=== PATIENT | female | born 2005 | race Caucasian/White ===

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

== ENCOUNTER 2023-02-09 11:22 | Emergency (ER) | payer OTHER, SELFPAY ==
[2023-02-09] VITALS (12 sets, daily range): BP systolic 124–134; BP diastolic 74–93; PULSE 70–96; RESP 20; TEMP 36.9; O2SAT 97–100; BMI 23.0
--- NOTE | 2023-02-09 12:10 | ED.ABDPAIN ---
HPI - Abdominal Pain General Time Seen by Provider: 12:10 Date Seen: 02/09/23 Chief Complaint: Abdominal Pain Stated Complaint: Positive test and has IUD Time Seen by Provider: 02/09/23 12:10 Source: patient and RN notes reviewed Mode of arrival: ambulatory Limitations: no limitations History of Present Illness HPI narrative: Patient is a very pleasant 17-year-old female who comes to the emergency room with a positive test, right-sided abdominal pain for 1 and half to 2 weeks and vaginal bleeding over the past couple of days. Patient notes that she had an IUD placed this past summer at her home in [place]. She notes that she is sexually active with 1 partner. She developed right lower quadrant pain approximately 1-1/2-2 weeks ago and has noticed that her breasts seemed to be more tender and larger. She noted that she had the onset of bleeding that has been heavy but on and off over the past couple days. She has never been before and she does not normally get periods with her IUD in place. Today she has a mild headache and is feeling a bit lightheaded. She denies that her heart is racing nor has she had a fever. She denies dysuria or diarrhea. 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 She is usually a healthy person. 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 She has not taken anything for pain and her last food intake was last evening. Related Data Home Medications Medication Instructions Recorded Confirmed bupropion HCl 100 mg tablet 100 mg PO BID 06/07/22 02/09/23 cetirizine 10 mg tablet (Zyrtec) 10 mg PO DAILY PRN 06/07/22 02/09/23 escitalopram oxalate 20 mg tablet 30 mg PO DAILY 06/07/22 02/09/23 levonorgestrel 21 mcg/24 hours (8 1 device intrauterine 06/07/22 yrs) 52 mg intrauterine device (Mirena) multivitamin 1 tab PO DAILY 06/07/22 06/07/22 lamotrigine 100 mg tablet 100 mg PO DAILY 02/09/23 02/09/23 (Lamictal) Previous Rx's Medication Instructions Recorded ketorolac 10 mg tablet 10 mg PO TID 5 days #15 tabs 06/07/22 Allergies Allergy/AdvReac Type Severity Reaction Status Date / Time No Known Drug Allergies Allergy Verified 06/07/22 15:47 Review of Systems Status of ROS Reports: 10 or more systems reviewed and unremarkable except as noted in History and below Const Denies: fever or chills ENMT Denies: throat pain or neck pain Cardio Reports: lightheadedness; Denies: chest pain, swelling of feet/ankles or shortness of breath with exertion Resp Denies: shortness of breath GI Reports: abdominal pain; Denies: nausea, vomiting or diarrhea Denies: painful urination or urinary frequency Musculo Denies: neck pain Neuro Reports: headache [facility] Medical History Asthma Surgical History Hx of breast reduction, elective S/P appendectomy Social History Smoking Status: Never smoker How often do you have a drink containing alcohol: monthly or less AUDIT-C Alcohol total score: 1 Non-prescribed substance use: denies use Exam Narrative: Exam Narrative: Alert and oriented. Good color and in no acute distress Oral cavity with moist mucous membranes. Dentition all intact. Neck is supple without lymphadenopathy. Heart with regular rate and rhythm. Lungs are clear to auscultation. Abdomen is soft. She has some slight tenderness in the suprapubic and right lower quadrant. Moving all extremities. Normal external female genitalia. Moderate amount mucoid discharge. No foul order. It is blood tinged. No cervical motion tenderness. Positive for tenderness in the right adnexa. No masses are palpated. Wet prep and GC chlamydia accomplished. Const: Vital Signs, click to edit/add: Vital Signs - 24 hr 02/09/23 11:47 02/09/23 13:36 02/09/23 13:37 Temperature 98.4 F Pulse Rate 79 88 Pulse Rate [Pulse Oximeter] 79 Respiratory Rate 20 Blood Pressure 127/79 Blood Pressure [Ri ght Upper Arm] 134/89 Pulse Oximetry 99 99 99 Oxygen Delivery Me thod Room Air 02/09/23 13:45 02/09/23 14:00 02/09/23 14:15 Temperature Pulse Rate 91 96 84 Pulse Rate [Pulse Oximeter] Respiratory Rate Blood Pressure Blood Pressure [Ri ght Upper Arm] Pulse Oximetry 99 97 100 Oxygen Delivery Me thod 02/09/23 14:30 02/09/23 14:32 02/09/23 14:45 Temperature Pulse Rate 78 80 72 Pulse Rate [Pulse Oximeter] Respiratory Rate Blood Pressure 134/93 H Blood Pressure [Ri ght Upper Arm] Pulse Oximetry 98 99 98 Oxygen Delivery Me thod 02/09/23 15:00 02/09/23 15:02 02/09/23 15:15 Temperature Pulse Rate 80 81 70 Pulse Rate [Pulse Oximeter] Respiratory Rate Blood Pressure 124/74 Blood Pressure [Ri ght Upper Arm] Pulse Oximetry 99 99 98 Oxygen Delivery Me thod Documenting provider has reviewed patient's vital signs: yes Course Course Hospital Course: At this time patient tells me she had a positive test at home. She did this test because her breasts have been tender in seemed to be bigger. Patient denies possibility of sexually transmitted diseases she is in a committed relationship. At this time of course I am worried about an ectopic . Will order quantitative hCG, vaginal ultrasound, CBC, comprehensive panel. Will also consult with OB on-call at this time. Will give patient 500 mL [address] saline and place an IV. Will also order a type and screen. Reevaluation(s) Reevaluation #1: Patient informed that hCG here to the ER is negative. Patient agrees to pelvic exam. Reevaluation #2: Patient notes some improvement after Toradol 15 mg IV. Patient also received 500 mL of normal saline. Consultations Consultation #1: Brief consultation with Dr. Herrera in regards to potential ectopic in this patient with a positive home test and IUD in place. Consultation #2: Second consult with Dr. Herrera. Negative HCG as well as ultrasound that did not show any evidence of , ovarian torsion or adnexal mass. Vital Signs Vital signs: Initial Vital Signs Temperature 98.4 F 02/09/23 11:47 Temperature Source Temporal Artery Scan 02/09/23 11:47 Pulse Rate 79 02/09/23 11:47 Respiratory Rate 20 02/09/23 11:47 Blood Pressure 134/89 02/09/23 11:47 Blood Pressure Mean 104 02/09/23 11:47 Blood Pressure Position Sitting 02/09/23 11:47 Pulse Oximetry 99 02/09/23 11:47 Oxygen Delivery Method 02/09/23 11:47 Vital Signs Temperature 98.4 F 02/09/23 11:47 Pulse Rate 79 02/09/23 11:47 Respiratory Rate 20 02/09/23 11:47 Blood Pressure 134/89 02/09/23 11:47 Pulse Oximetry 99 02/09/23 11:47 Oxygen Delivery Method 02/09/23 11:47 Temperature 98.4 F 02/09/23 11:47 Pulse Rate 70 02/09/23 15:15 Respiratory Rate 20 02/09/23 11:47 Blood Pressure 124/74 02/09/23 15:02 Pulse Oximetry 98 02/09/23 15:15 Oxygen Delivery Method 02/09/23 11:47 MDM - Abdominal Pain MDM Narrative Medical decision making narrative: 1. Vaginal bleeding-serum quantitative hCG is negative an ultrasound shows no evidence of a . Reassurance that IUD appears to be in correct location. I do not have explanation for patient's pain at this time. GC and chlamydia pending and wet prep is negative. Recommend ibuprofen or Tylenol as needed for discomfort. 2. Right lower quadrant pain-patient had with ultrasound that showed good flow to ovaries. Pain has been ongoing for 1-1/2-2 weeks at this point. CRP and white count within normal limits. Patient had appendectomy as a child. At this time I did talk about further evaluation but feel that the risks of a CT with radiation outweigh any benefits. However, should abdominal pain increase, patient have increasing fever would have her return to the emergency room for further evaluation. 3. [id number] with OBGYN for recheck. Return to the emergency room or seek medical attention for worsening symptoms. Lab Data Attestation: I reviewed the patient's lab results. Labs: Lab Results 02/09/23 02/09/23 02/09/23 Range/Units 12:41 12:41 12:41 WBC 5.35 (4.50-11.00) K/uL RBC 5.06 (4.00-5.20) m/uL Hgb 13.4 (12.0-16.0) gm/dL Hct 41.5 (33.0-51.0) % MCV 82 (80-100) fL MCH 27 (26-34) pg MCHC 32 (32-36) gm/dL RDW Coeff of Primitivo 14.0 (11.5-15.5) % Plt Count 288 (140-440) K/uL Neut % (Auto) 53.3 (42.0-72.0) % Lymph % (Auto) 36.3 (20-44) % Keith % (Auto) 6.9 (0.0-11.0) % Eos % (Auto) 2.6 (0.0-7.0) % Baso % (Auto) 0.7 (0.0-3.0) % Neut # (Auto) 2.85 (1.7-7.0) K/uL Lymph # (Auto) 1.94 (0.90-2.90) K/uL Keith # (Auto) 0.40 (0.00-0.90) K/UL Eos # (Auto) 0.14 (0.00-0.50) K/uL Baso # (Auto) 0.04 (0.00-0.30) K/uL Sodium 136 (135-149) mmol/L Potassium 4.8 (3.6-5.1) mmol/L Chloride 104 (96-114) mmol/L Carbon Dioxide 24 (20-32) mmol/L BUN 11 (5-24) mg/dL Creatinine 0.8 (0.6-1.2) mg/dL Estimated Creat Clear 93.56 Estimated GFR 109 ml/min Glucose 89 (60-115) mg/dL Calcium 9.7 (8.7-10.8) mg/dL Total Bilirubin 0.7 (0.1-1.5) mg/dL AST 36 H (12-35) U/L ALT 21 (4-35) U/L Alkaline Phosphatase 74 (40-150) U/L Total Protein 8.4 H (6.0-8.3) g/dL Albumin 4.9 (3.3-5.0) g/dL HCG, Quant < 2.39 mIU/mL Vaginal Trichomonas (None Seen) Vaginal Yeast (None Seen) Vaginal Clue Cells (None Seen) C.trachomatis Ampl DNA (No Detected) N.gonorrhoeae Ampl DNA (No Detected) Blood Type A Positive Antibody Screen NEGATIVE 02/09/23 02/09/23 Range/Units 14:00 14:00 WBC (4.50-11.00) K/uL RBC (4.00-5.20) m/uL Hgb (12.0-16.0) gm/dL Hct (33.0-51.0) % MCV (80-100) fL MCH (26-34) pg MCHC (32-36) gm/dL RDW Coeff of Primitivo (11.5-15.5) % Plt Count (140-440) K/uL Neut % (Auto) (42.0-72.0) % Lymph % (Auto) (20-44) % Keith % (Auto) (0.0-11.0) % Eos % (Auto) (0.0-7.0) % Baso % (Auto) (0.0-3.0) % Neut # (Auto) (1.7-7.0) K/uL Lymph # (Auto) (0.90-2.90) K/uL Keith # (Auto) (0.00-0.90) K/UL Eos # (Auto) (0.00-0.50) K/uL Baso # (Auto) (0.00-0.30) K/uL Sodium (135-149) mmol/L Potassium (3.6-5.1) mmol/L Chloride (96-114) mmol/L Carbon Dioxide (20-32) mmol/L BUN (5-24) mg/dL Creatinine (0.6-1.2) mg/dL Estimated Creat Clear Estimated GFR ml/min Glucose (60-115) mg/dL Calcium (8.7-10.8) mg/dL Total Bilirubin (0.1-1.5) mg/dL AST (12-35) U/L ALT (4-35) U/L Alkaline Phosphatase (40-150) U/L Total Protein (6.0-8.3) g/dL Albumin (3.3-5.0) g/dL HCG, Quant mIU/mL Vaginal Trichomonas No Trichomonas Seen (None Seen) Vaginal Yeast No Yeast Seen (None Seen) Vaginal Clue Cells No Clue Cells Seen (None Seen) C.trachomatis Ampl DNA NOT DETECTED (No Detected) N.gonorrhoeae Ampl DNA NOT DETECTED (No Detected) Blood Type Antibody Screen Imaging Data Vaginal ultrasound: Attestation: I have reviewed the pertinent imaging results. Radiologist's impression: IUD in the endometrial canal. Endometrial thickness is 4 mm. No intrauterine gestational sac. Right ovary measures 3.8 x 2.1 x 2.7 cm. Normal appearance of the right ovary. Blood flow present in the right ovary. Left ovary measures 3 x 1.9 cm. Third dimension was not obtained. Normal appearance of the left ovary. Blood flow present in the left ovary. No mass in the visualized adnexae. Trace free fluid in the pelvis. IMPRESSION: 1. of unknown location. No intrauterine gestational sac. Correlate with quantitative beta HCG and consider ultrasound follow-up. 2. IUD in the uterus. 3. Normal appearing ovaries. 4. Trace free fluid in the pelvis. Discharge Plan Discharge Clinical Impression: Vaginal bleeding, Abdominal pain Patient Disposition: Home, Self-Care Condition: Improved Additional Instructions: Follow-up with OBGYN for recheck. The phone number for appointment is [phone]. Please ask to be transferred to the OB appointment line. Profound or Tylenol as needed for discomfort. Labs today were reassuring. However, should you develop worsening pain, fever, vaginal bleeding increased please return to the emergency room for further evaluation. Prescriptions: No Action bupropion HCl 100 mg tablet 100 mg PO BID escitalopram oxalate 20 mg tablet 30 mg PO DAILY Mirena 20 mcg/24 hours (7 yrs) 52 mg intrauterine device 1 device intrauterine cetirizine [Zyrtec] 10 mg tablet 10 mg PO DAILY PRN multivitamin Tablet 1 tab PO DAILY ketorolac 10 mg tablet 10 mg PO TID 5 Days Qty: 15 0RF lamotrigine [Lamictal] 100 mg tablet 100 mg PO DAILY Follow Up/Referrals: Provider,Not a Local [Primary Care Provider] - Stand Alone Forms: [employer] Info Instructions
--- NOTE | 2023-02-09 12:17 | CRLHL7_ITS ---
For Patients: As a result of the Century Cures Act, medical imaging exams and procedure reports are released immediately into your electronic medical record. You may view this report before your referring provider. If you have questions, please contact your health care provider. HISTORY: Right lower quadrant pain. Positive home test. IUD. TECHNIQUE: Ultrasound of the pelvis using transvaginal technique. COMPARISON: None. FINDINGS: IUD in the endometrial canal. Endometrial thickness is 4 mm. No intrauterine gestational sac. Right ovary measures 3.8 x 2.1 x 2.7 cm. Normal appearance of the right ovary. Blood flow present in the right ovary. Left ovary measures 3 x 1.9 cm. Third dimension was not obtained. Normal appearance of the left ovary. Blood flow present in the left ovary. No mass in the visualized adnexae. Trace free fluid in the pelvis. IMPRESSION: 1. of unknown location. No intrauterine gestational sac. Correlate with quantitative beta HCG and consider ultrasound follow-up. 2. IUD in the uterus. 3. Normal appearing ovaries. 4. Trace free fluid in the pelvis. Dictated by Solo Donis MD @ 02/09/2023 2:22:32 PM (Electronically Signed)
[2023-02-09 12:47] LABS: Basophils Absolute Auto 0.04 K/uL (0.00-0.30); Basophils Percent Auto 0.7 % (0.0-3.0); Eosinophils Absolute Auto 0.14 K/uL (0.00-0.50); Eosinophils Percent Auto 2.6 % (0.0-7.0); Hematocrit 41.5 % (33.0-51.0); Hemoglobin* 13.4 gm/dL (12.0-16.0); Immature Granulocytes Abs Auto 0.01 K/uL (0.00-0.30); Immature Granulocytes Pct Auto 0.2 %; Lymphocytes Absolute Auto 1.94 K/uL (0.90-2.90); Lymphocytes Percent Auto 36.3 % (20-44); Mean Corpuscular HGB Conc 32 gm/dL (32-36); Mean Corpuscular Hemoglobin 27 pg (26-34); Mean Corpuscular Volume 82 fL (80-100); Monocytes Percent Auto 6.9 % (0.0-11.0); Neutrophils Absolute Auto 2.85 K/uL (1.7-7.0); Neutrophils Percent Auto 53.3 % (42.0-72.0); Platelet Count* 288 K/uL (140-440); Red Blood Count 5.06 m/uL (4.00-5.20); White Blood Count* 5.35 K/uL (4.50-11.00)
[2023-02-09 12:51] LABS: Slide Review Reflex No
[2023-02-09] MEDS: 0.9 % SODIUM CHLORIDE 500 ML 500 ML IV (12:55)
[2023-02-09 13:07] LABS: Albumin* 4.9 g/dL (3.3-5.0); Chloride* 104 mmol/L (96-114); Potassium* 4.8 mmol/L (3.6-5.1); Sodium* 136 mmol/L (135-149)
[2023-02-09 13:10] LABS: Alanine Aminotransferase* 21 U/L (4-35); Alkaline Phosphatase* 74 U/L (40-150); Aspartate Amino Transferase* 36 U/L (12-35); Bilirubin Total* 0.7 mg/dL (0.1-1.5); Blood Urea Nitrogen* 11 mg/dL (5-24); Carbon Dioxide* 24 mmol/L (20-32); Creatinine* 0.8 mg/dL (0.6-1.2); Est. Creatinine Clearance* 93.56; Estimated Glomerular Filt Rate 109 ml/min; Glucose* 89 mg/dL (60-115); Total Protein* 8.4 g/dL (6.0-8.3)
[2023-02-09 13:11] LABS: Calcium* 9.7 mg/dL (8.7-10.8)
[2023-02-09 13:33] LABS: HCG Quantitative* < 2.39 mIU/mL
--- NOTE | 2023-02-09 14:06 | ED.NURSE ---
MD in room to perform pelvic exam and obtain swabs for wet prep and GC/Chl. [employer] at bedside.
[2023-02-09] MEDS: KETOROLAC 15 MG/ML inj IVP (14:12)
[2023-02-09 14:30] LABS: Yeast No Yeast Seen (None Seen)
[2023-02-09 14:31] LABS: Clue Cells No Clue Cells Seen (None Seen); Trichomonas No Trichomonas Seen (None Seen)
[2023-02-09 15:42] LABS: Chlamydia DNA Amplified* NOT DETECTED (No Detected); GC DNA Amplified* NOT DETECTED (No Detected)
== END 2023-02-09 15:25 | disposition home or self-care (01) ==
PROVIDERS: Emergency Provider Family Medicine
DX: N93.9 Abnormal uterine and vaginal bleeding, unspecified (principal); R10.9 Unspecified abdominal pain
CPT/HCPCS: 36415; 76817; 80053; 84702; 85025; 86850; 86900; 86901; 87210; 87491; 87591; 93976; 96361; 96374; 99284; 99285; J1885; J7120

== ENCOUNTER 2024-08-28 16:18 | Emergency (ER) | payer OTHER, SELFPAY ==
[2024-08-28 16:21] VITALS: BP 146/88; PULSE 56; RESP 14; TEMP 36.9; O2SAT 98; BMI 24.8
--- NOTE | 2024-08-28 16:59 | ED_ITS ---
HPI - General Adult General Chief complaint: Cough Stated complaint: asthma, COVID + Time Seen by Provider: 08/28/24 16:29 History of Present Illness HPI narrative: This 19-year-old female comes in reporting a home test positive for COVID yesterday. She does have an occasional nonproductive cough. She does have a history of asthma and is taking preventative medicine along with albuterol as needed. She is reporting some tingling sensation in her fingers. She has anxiety about these symptoms and is a little bit tearful and that regard. She arrives here with normal vital signs. She does see a asthma specialist for her asthma and allergy symptoms. Related Data Home Medications ?Medication ?Instructions ?Recorded ?Confirmed bupropion HCl 100 mg tablet 100 mg PO BID 06/07/22 08/25/23 cetirizine 10 mg tablet (Zyrtec) 10 mg PO DAILY PRN 06/07/22 08/25/23 escitalopram oxalate 20 mg tablet 30 mg PO DAILY 06/07/22 08/25/23 levonorgestrel 21 mcg/24 hr (up to 1 device intrauterine 06/07/22 08/25/23 8 years) 52 mg intrauterine device (Mirena) mirtazapine 15 mg tablet 15 mg PO DAILY 08/28/24 08/28/24 Previous Rx's ?Medication ?Instructions ?Recorded methylprednisolone 4 mg tablets in See Rx Instructions PO .COMPLEX 08/28/24 a dose pack (Medrol (Germán)) #21 ea Allergies Allergy/AdvReac Type Severity Reaction Status Date / Time No Known Drug Allergies Allergy Verified 08/25/23 14:05 Review of Systems Status of ROS: Reports: 10 or more systems reviewed and unremarkable except as noted in History and below Narrative: Constitutional: No fevers, no weight gain or loss. Eyes: No discharge. No vision changes. HENT: No congestion, no sore throat, no ear pain. Cardiovascular: No chest pain, no palpitations. Respiratory: No shortness of breath, no wheezes. Occasional nonproductive cough. Gastrointestinal: No abdominal pain, no vomiting, no diarrhea. Genitourinary: No dysuria, no hematuria. Musculoskeletal: Normal range of motion. Skin: No rashes, no pruritis. Neurological: No dizziness, weakness, sensory change, speech change. Endo/Heme/Allergies: No bruising or bleeding. No polydipsia. Pysch: no suicidality, no insomnia. She has anxiety about her symptoms. All other systems reviewed and are negative. [facility] Medical History Asthma Surgical History Hx of breast reduction, elective S/P appendectomy Social History Smoking Status: Never smoker How often do you have a drink containing alcohol: monthly or less AUDIT-C Alcohol total score: 1 Non-prescribed substance use: denies use Exam Narrative: Exam Narrative: Constitutional: Well-developed, well-nourished, no acute distress. HEENT: Normocephalic, atraumatic. Neck: Normal range of motion. Nontender. Supple. Heart: Regular. No murmurs. Normal rate. Intact distal pulses. Lungs: Clear to auscultation. No chest discomfort. No wheezes, rhonchi, or rales. Abdomen: Normal bowel sounds. Nontender. No rebound tenderness. Genitalia: Deferred. Back: No midline tenderness. Normal range of motion. Extremities: Normal range of motion. No injury. Skin: Intact. No rash. Warm. No erythema or pallor. Neurologic: No altered sensation. No weakness. Alert and oriented. Psychiatric: No suicidality. No insomnia. Nursing notes and vitals signs are reviewed. Const: Vital Signs, click to edit/add: Vital Signs - 24 hr 08/28/24 16:21 Temperature 98.4 F Pulse Rate [Right Pulse Oximeter] 56 L Respiratory Rate 14 Blood Pressure [Ri ght Upper Arm] 146/88 H Pulse Oximetry 98 Oxygen Delivery Me thod Room Air Course Vital Signs Vital signs: Initial Vital Signs Temperature 98.4 F 08/28/24 16:21 Temperature Source Temporal Artery Scan 08/28/24 16:21 Pulse Rate 56 L 08/28/24 16:21 Pulse Rhythm Regular 08/28/24 16:21 Pulse Strength 3+ Normal 08/28/24 16:21 Respiratory Rate 14 08/28/24 16:21 Blood Pressure 146/88 H 08/28/24 16:21 Blood Pressure Mean 107 H 08/28/24 16:21 Blood Pressure Position Sitting 08/28/24 16:21 Pulse Oximetry 98 08/28/24 16:21 Oxygen Delivery Method Room Air 08/28/24 16:21 Vital Signs Temperature 98.4 F 08/28/24 16:21 Pulse Rate 56 L 08/28/24 16:21 Respiratory Rate 14 08/28/24 16:21 Blood Pressure 146/88 H 08/28/24 16:21 Pulse Oximetry 98 08/28/24 16:21 Oxygen Delivery Method Room Air 08/28/24 16:21 Temperature 98.4 F 08/28/24 16:21 Pulse Rate 56 L 08/28/24 16:21 Respiratory Rate 14 08/28/24 16:21 Blood Pressure 146/88 H 08/28/24 16:21 Pulse Oximetry 98 08/28/24 16:21 Oxygen Delivery Method Room Air 08/28/24 16:21 Medical Decision Making MDM Narrative Medical decision making narrative: This patient had a positive test at home for COVID and comes in with some anxiety in this regard. She is taking medicines to manage her anxiety. She also has history of asthma and is concerned that COVID is going to affect her breathing. She arrives with normal vital signs. She did use an albuterol inhaler prior to arrival and now feels some tingling sensation in her hands. She is on a preventative medicine for her asthma symptoms and has no sign of shortness of breath or wheezing currently. I gave reassurance is to her with regard to her exam and her vital signs. I did discuss lab and imaging options and the patient would like to have a general screening with ultrasound as she has anxiety about her health and symptoms. I did see normal appearing lungs bilaterally, heart, and structures of the upper abdomen right to left also appear normal. This was reassuring to the patient. I did provide bite a prescription for Medrol Dosepak to treat her symptoms. Discharge Plan Discharge Clinical Impression: COVID-19, Anxiety Patient Disposition: Home, Self-Care Condition: Stable Additional Instructions: Take medication as prescribed. Continue other current medications as needed and indicated. Follow up with MD return if worsening. Prescriptions: New methylprednisolone [Medrol (Germán)] 4 mg tablets,dose pack See Rx Instructions .ROUTE .COMPLEX Qty: 21 0RF Rx Instructions: orally per package directions No Action bupropion HCl 100 mg tablet 100 mg PO BID escitalopram oxalate 20 mg tablet 30 mg PO DAILY Mirena 20 mcg/24 hours (7 yrs) 52 mg intrauterine device 1 device intrauterine cetirizine [Zyrtec] 10 mg tablet 10 mg PO DAILY PRN mirtazapine 15 mg tablet 15 mg PO DAILY Follow Up/Referrals: Provider,Not a Local [Primary Care Provider] - Stand Alone Forms: [facility] Info Instructions Procedures Ultrasound Other exam #1: Anatomical areas examined: Heart, lungs, and upper abdomen. Indications: Anxiety, COVID symptoms. Exam type: focused emergency ultrasound Description/findings: Normal appearing heart and lungs and upper abdomen including kidneys, gallbladder, liver, aorta. Impression: Negative exam.
--- OUTSIDE RECORDS SUMMARY | 2024-08-28 17:08 | XMS_ITS | Patient Health Record ---
Author Organization [facility] Address [address] [place] [address] Care Team Providers Care Psychiatric Aide Name Role Phone Gladys Goff Primary Care Provider Unavailmary ann Mejia MD, Thomas Unavailable [phone] Kei Fitch MD, Ally Unavailable Unavailable Allergies Allergen (clinical drug ingredient) Drug/Non Drug Allergy documented on EMR Reaction Allergy Type Onset Date Status Cat dander Cats (uncoded) Unknown Allergy Acti ve Cladosporium (uncoded) Unknown Allergy Active Dog dander Dogs (uncoded) Unknown Allergy Acti ve Dust Mite (uncoded) Unknown Allergy Active NKDA (uncoded) Unknown Allergy Activ e Trees (uncoded) Unknown Allergy Acti ve Results Component Value Reference Range Notes SPIROMETRY Reviewed date:08/05/2024 11:42:43 AM Interpretation:Slightly decreased from previous and slightly obstructed with exhaled nitric oxide measurement significantly elevated at 264 ppb. Performing Lab: Notes/Report: Slightly decreased from previous and slightly obstructed with exhaled nitric oxide measurement significantly elevated at 264 ppb. FEV1 (L) 2.92 FEV1 (%) 91 FVC (L) 3.74 FVC (%) 102 FEV1/FVC 0.78 FEF 25-75% (L) 2.87 FEF 25-75% (%) 78 POST SPIROMETRY Reviewed date:08/05/2024 11:58:20 AM Interpretation:Significant bronchodilator response with reversible obstruction with an FEV1 improvement of 380 mL equivalent to 13% improvement after albuterol Performing Lab: Notes/Report: Significant bronchodilator response with reversible obstruction with an FEV1 improvement of 380 mL equivalent to 13% improvement after albuterol FEV1 (L) 3.30 FEV1 (%) 102 FEV1 (% Change) 13 FVC (L) 3.86 FVC (%) 105 FVC (% Change) 3 FEV1/FVC 0.85 FEF 25-75% (L) 3.31 FEF 25-75% (%) 90 FEF 25-27% (% Change) 15 Reason For Referral No Information Medications Medication SIG (Take, Route, Frequency, Duration) Notes Start Date End Date Status Vitamin D Not-Taking Mirtazapine 15 MG TAKE 1 TABLET BY BILL TH EVERY DAY Oral for 90 Days Active LaMICtal 100 MG 1 tablet Orally Once a day for 30 day(s) Not-Taking Ventolin HFA 108 (90 Base) MCG/ACT inhale 2 puffs by in Inhalation every 4 hrs prn for 90 days PRN 12/17/2012 Active Arnuity Ellipta 100 MCG/ACT 1 puff Inhalation Once a day for 90 days 03/06/2021 Active Escitalopram Oxalate 20 MG Oral for 90 Days Active Multivitamin Gummies Adult - Orally Active Asmanex 60 Metered Doses 220 MCG/INH 1 puff Inhalation once a day for 30 days 05/09/2017 Not-Taking Pulmicort Flexhaler 90 MCG/ACT 2 puffs Inhalation Twice a day for 30 days 08/05/2024 Active Asmanex (30 Metered Doses) 220 MCG/INH Take 1 puff daily Not- Taking ZyrTEC 10 take 1 tablet 10 mg oral QD PRN PRN 05/14/2016 Active Kym 3-0.02 MG 1 tablet Orally Once a day Not-Taking busPIRone HCl 10 MG 1 tablet Orally Twic e a day Active Flonase Allergy Relief 50 MCG/ACT 1 spray in each nostril Nasally Once a day for 30 day(s) Not-Taking Nasacort Allergy 24HR 55 MCG/ACT 1 spray in each nostril Nasally Once a day for 30 day(s) PRN Active IUD's Active Lexapro 10 MG 3 tablets Orally Onc e a day Not-Taking Prevacid 24HR 15 MG 1 capsule before a m eal Orally Once a day for 30 day(s) Active Calcium Gummies 250-100-500 MG-UNIT as directed Orally No t-Taking Immunizations Vaccine Route Administration Date Status Comme nts Influenza (split), 3 yrs and above Unknown 2003 Administered Influenza (split), 3 yrs and above Unknown 2003 Administered Influenza (split), 3 yrs and above Unknown 2003 Administered Influenza (split), 3 yrs and above Unknown 2003 Administered Influenza (split), 3 yrs and above Unknown 09/17/2012 Administered PER MOM RECD Influenza (split), 3 yrs and above Unknown 08/31/2016 Administered per mom pt recei vedsc Social History Tobacco Use: Social History Observation Description Date Details (start date - stop date) Never Smoker NA - NA Tobacco Use/Smoking Question Answer Notes Are you a nonsmoker Problems Problem Type SNOMED Code ICD Code Onset Dates Problem Status W/U Status Risk Notes Problem 71767235 Other chronic sinusitis (J32.8) Active confirmed Problem 16933327 Nasal congestion (R09.81) Active confirmed Problem 545819863 Allergic rhinitis due to dust mite (J30.89) Active confirmed Problem 604493409 Allergic rhinitis due to animal dander (J30.81) Active confirmed Problem 74885964281367854 Allergic rhinitis due to mold (J30.89) Active confirmed Problem 227340279030051 Allergic conjunctivitis of both eyes (H10.13) Active confirmed Problem 470159926 Mild persistent asthma, well controlled (J45.30) Active confirmed now more like intermittent Problem 49190927 Chronic seasonal allergic rhinitis due to pollen (J30.1) Active confirmed Problem 72266195 Nasal turbinate hypertrophy (J34.3) Active confirmed Problem 262250168 Moderate persistent asthma, unspecified whether complicated (J45.40) Active confirmed Problem 06218714 Hyposmia (R43.8) Active confirmed Vital Signs Heart Rate 86 bpm 08/05/2024 Oximetry 97 % 08/05/2024 Height 63 in 08/05/2024 Weight 140 lbs 08/05/2024 BMI 24.8 kg/m2 08/05/2024 Encounters Encounter Location Date Provider Diagnosis [facility] [address] [address] 08/05/2024 Thomas Mejia [facility] [address] [address] 08/28/2024 Thomas Mejia [facility] [address] [address] 08/05/2024 Thomas Mejia Other chronic sinusi tis J32.8 ; Moderate persistent asthma, unspecified whether complicated J45.40 ; Nasal turbinate hypertrophy J34.3 ; Hyposmia R43.8 ; Nasal congestion R09.81 ; Allergic rhinitis due to dust mite J30.89 ; Allergic rhinitis due to animal dander J30.81 ; Chronic seasonal allergic rhinitis due to pollen J30.1 ; Allergic rhinitis due to mold J30.89 ; Allergic conjunctivitis of both eyes H10.13 and Mild persistent asthma, well controlled J45.30 Assessments Encounter Date Diagnosis (ICD Code) Assessment Notes Treatment Notes Treatment Clinical Notes 08/05/2024 Other chronic sinusitis (ICD-10 - J32.8) Much improved status post sinus surgery last summer. I still do not have a copy of the sinus CT to confirm if the patient indeed had polyps that needed to be removed or not. Since patient is doing better currently we will monitor and track down if necessary. 08/05/2024 Moderate persistent asthma, unspecified whether complicated (ICD-10 - J45.40) ACT 25 BUT FeNO 264ppb suggesting significantly increased lower airway eosinophilic inflammation, AND spirometry reveals significant bronchodilator response with reversible obstruction. Suspect poor symptom perception (with ACT of 25) since baseline spirometry was not terribly obstructed but there was significant reversibility. Recommend restarting Arnuity. Will follow-up and monitor closely this cold and flu season. Patient is at risk of asthma exacerbation with the above lung function parameters. Previously she was mild intermittent but based on today's spirometry and exhaled nitric oxide measurement I think she is at least mild persistent but at risk of moderate persistent. Will call in Arnuity refill. Restart Arnuity and we will start at the 100 dose and titrate depending on response to therapy. 08/05/2024 Nasal turbinate hypertrophy (ICD-10 - J34.3) Much improved status post turbinectomy last summer. 08/05/2024 Hyposmia (ICD-10 - R43.8) Much improved status post turbinectomy and sinus surgery last summer. 08/05/2024 Nasal congestion (ICD-10 - R09.81) Much improved status post sinus surgery last summer with allergy immunotherapy for 5 years. Still occasionally uses allergy meds as needed but is much improved. 08/05/2024 Allergic rhinitis due to dust mite (ICD-10 - J30.89) 08/05/2024 Allergic rhinitis due to animal dander (ICD-10 - J30.81) 08/05/2024 Chronic seasonal allergic rhinitis due to pollen (ICD-10 - J30.1) 08/05/2024 Allergic rhinitis due to mold (ICD-10 - J30.89) 08/05/2024 Allergic conjunctivitis of both eyes (ICD-10 - H10.13) Asymptomatic 08/05/2024 Mild persistent asthma, well controlled (ICD-10 - J45.30) now more like intermittent Previously she was mild intermittent but based on today's spirometry and exhaled nitric oxide measurement I think she is at least mild persistent but at risk of moderate persistent. Will call in Arnuity refill. Restart Arnuity and we will start at the 100 dose and titrate depending on response to therapy. 08/05/2024 Other Total time spen t on patient care today, including [id number] and [id number] activities, was [45] minutes. Speech recognition software was used to create this documentation, which may create minor typographical errors. Effort was made to proofread. Please notify the author if there is confusion regarding interpretation of what is written, and/or if inconsistencies or errors persist. Plan Of Treatment Pending Test Test Name Order Date JANENE-MIDMARK 04/15/2019 JANENE-MIDMARK 05/06/2019 JANENE-MIDMARK 12/14/2019 JANENE-MIDMARK 05/10/2021 Insurance Providers Payer Name Payer Address Payer Phone Subscriber Number Group Number Insured Name Patient Relationship to Insured Coverage Start Date Coverage End Date [employer] [facility] [address] [place] [address] [id number] Juventino Carranza Child - Insured has Financial Responsibility Medical (General) History Medical History History ICD Code asthma, mild persistent allergic rhinoconjunctivitis due to animal dander, dust mites, seasonal pollens and mold complex regional pain syndrome Jurgen's thyroiditis Surgical History Surgery Date(Month/Year) Appendectomy Hand surgery 2022 Hospitalization History Reason Date(Month/Year) Broken hand 2022 ankle injury 05/2022
--- OUTSIDE RECORDS SUMMARY | 2024-08-28 17:08 | XMS_ITS ---
Author Organization [facility] Address [address] [facility] [address] [place] [address] Care Team Providers Care Brass Molder Helper Name Role Phone Gladys Goff Primary Care Provider Unavailmary ann Mejia MD, Thomas Unavailable [phone] Kei Fitch MD, Ally Unavailable Unavailable Allergies [...] (%) 90 FEF 25-27% (% Change) 15 REASON FOR VISIT Asthma allergy and sinus disease follow-up Medications Medication SIG (Take, Route, Frequency, Duration) Notes Start Date End Date Status Vitamin D Not-Taking Asmanex 60 Metered Doses 220 MCG/INH 1 puff Inhalation once a day for 30 days 05/09/2017 Not-Taking Asmanex (30 Metered Doses) 220 MCG/INH Take 1 puff daily Not- Taking Kym 3-0.02 MG 1 tablet Orally Once a day Not-Taking Flonase Allergy Relief 50 MCG/ACT 1 spray in each nostril Nasally Once a day for 30 day(s) Not-Taking Lexapro 10 MG 3 tablets Orally Onc e a day Not-Taking Calcium Gummies 250-100-500 MG-UNIT as directed Orally No t-Taking Mirtazapine 15 MG TAKE 1 TABLET BY BILL TH EVERY DAY Oral for 90 Days Active LaMICtal 100 MG 1 tablet Orally Once a day for 30 day(s) Not-Taking Escitalopram Oxalate 20 MG Oral for 90 Days Active Nasacort Allergy 24HR 55 MCG/ACT 1 spray in each nostril Nasally Once a day for 30 day(s) PRN Active Ventolin HFA 108 (90 Base) MCG/ACT inhale 2 puffs by in Inhalation every 4 hrs prn for 90 days PRN 12/17/2012 Active Multivitamin Gummies Adult - Orally Active ZyrTEC 10 take 1 tablet 10 mg oral QD PRN PRN 05/14/2016 Active busPIRone HCl 10 MG 1 tablet Orally Twic e a day Active IUD's Active Prevacid 24HR 15 MG 1 capsule before a m eal Orally Once a day for 30 day(s) Active Arnuity Ellipta 100 MCG/ACT 1 puff Inhalation Once a day for 90 days 03/06/2021 Active Social History Tobacco Use: Social History Observation Description Date Details (start date - stop date) Never Smoker NA - NA Tobacco Use/Smoking Question Answer Notes Are you a nonsmoker Problems Problem Type SNOMED Code ICD Code Onset Dates Problem Status W/U Status Risk Notes Problem [id number] Moderate persistent asthma, unspecified whether complicated (J45.40) Active confirmed Vital Signs Heart Rate 86 bpm 08/05/2024 Oximetry 97 % 08/05/2024 Height 63 in 08/05/2024 Weight 140 lbs 08/05/2024 BMI 24.8 kg/m2 08/05/2024 Encounters Encounter Location Date Provider Diagnosis [facility] [address] [place] [address] 08/05/2024 Thomas Mejia Other chronic sinusi tis [...] spen t on patient care today, including xilo-ac-ynnv and dwa-aouq-gl-face activities, was [45] minutes. Speech recognition software was used to create this documentation, which may create minor typographical errors. Effort was made to proofread. Please notify the author if there is confusion regarding interpretation of what is written, and/or if inconsistencies or errors persist. Plan Of Treatment Medication Medication Name Sig Start Date Stop Date Notes Arnuity Ellipta 100 MCG/ACT 1 puff Inhal ation Once a day for 90 days 03/06/2021 Treatment Notes Assessment Notes Other chronic sinusitis Much improved st atus post sinus surgery last summer. I still do not have a copy of the sinus CT to confirm if the patient indeed had polyps that needed to be removed or not. Since patient is doing better currently we will monitor and track down if necessary. Moderate persistent asthma, unspecified whether complicated ACT 25 BUT FeNO 264ppb suggesting significantly [...] and titrate depending on response to therapy. Nasal turbinate hypertrophy Much improve d status post turbinectomy last summer. Hyposmia Much improved status post turbinectomy and sinus surgery last summer. Nasal congestion Much improved status post sinus surgery last summer with allergy immunotherapy for 5 years. Still occasionally uses allergy meds as needed but is much improved. Allergic conjunctivitis of both eyes Asy mptomatic Mild persistent asthma, well controlled Previously she was mild intermittent but based on today's spirometry and exhaled nitric oxide measurement I think she is at least mild persistent but at risk of moderate persistent. Will call in Arnuity refill. Restart Arnuity and we will start at the 100 dose and titrate depending on response to therapy. Other Total time spent on patient care today, including myob-la-wicn and smg-cysw-td-face activities, was [45] minutes. Speech recognition software was used to create this documentation, which may create minor typographical errors. Effort was made to proofread. Please notify the author if there is confusion regarding interpretation of what is written, and/or if inconsistencies or errors persist. Next Appt Details Follow Up: 4 Months, Reason: Progress Notes * Elin CARRANZA CDOB:2005 (19 yo F)Acc No.[id number]:08/05/2024 Progress Notes Patient:?Elin CARRANZA Provider:?Thomas Mejia M.D. :2005???Age:19 Y???Sex:Female D ate:08/05/2024 Address:[address] [place], [place] [id number] Pcp:Gladys Goff Subjective: * Chief Complaints: * ???Asthma allergy and sinus disease follow-up * HPI: ???Asthma:?Asthma Control Care Plan?Tool Most recently used:?Asthma Control Test (ACT) ?ACT Score:?25 ?19-year-old female here for follow-up of her asthma and allergy issues. Last seen in July 2023. At that time, the patient informed me that she was scheduled for sinus surgery and turbinectomy later that month. She was being followed by Dr. Pearl. She thinks she may have been told she had nasal/sinus polyps. I do not have the sinus CT to confirm. We talked about a potential biologic for the management of chronic sinusitis with nasal polyps if indeed she has this condition and experiences relapse. Otherwise asthma seems well-controlled and seems more intermittent and is not complaining of any significant environmental allergies after allergy immunotherapy. She ended up having sinus surgery and went well and has made a big difference she says. Sense of smell is better and can breathe easier from nose too.? She is NOT sure if polyps were removed.? Occasionally does sinus rinses but no other allergy nasal sprays. Did allergy shots for 5 years and it definitely made a big difference as I visited a friend with a cat this summer and I did not have any issues she says.?? She thinks her asthma has been fine for the most part; if I am feeling sick sometimes I notice it and I take my inhaler but for the most does not seem different she says. Denies exercise related breathing sxs. 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 Occasional tightness but not debilitating sometimes at night with windows open she says maybe 1-2 times a month and ventolin helps she says.? NO ED NO PRED in past year. Nasacort and zyrtec is PRN and Albuterol prn.?? Does not take Arnuity daily anymore.?? Notices ARC is worse in late summer. * Medical History:? * Surgical History:?Appendecto my Hand surgery 2022 * Hospitalization/Major Diagno stic Procedure:?ankle injury roken hand 2022 * Family History:?Mother: aliv e.?Father: alive.?MigFamHx: No significant family history of atopy.?1 sister(s) . .? No family history of allergy. 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 * Medications:?TakingIUD's Pre vacid 24HR 15 MG Capsule Delayed Release 1 capsule before a meal Orally Once a day Nasacort Allergy 24HR 55 MCG/ACT Aerosol 1 spray in each nostril Nasally Once a day , Notes to Pharmacist: PRNZyrTEC 10 tablet take 1 tablet 10 mg oral QD PRN , Notes to Pharmacist: PRNbusPIRone HCl 10 MG Tablet 1 tablet Orally Twice a day Multivitamin Gummies Adult - Tablet Chewable Orally Ventolin HFA 108 (90 Base) MCG/ACT Aerosol Solution inhale 2 puffs by in Inhalation every 4 hrs prn , Notes to Pharmacist: PRNEscitalopram Oxalate 20 MG Tablet Oral Mirtazapine 15 MG Tablet TAKE 1 TABLET BY MOUTH EVERY DAY Oral Taking IUD's Taking Prevacid 24HR 15 MG Capsule Delayed Release 1 capsule before a meal Orally Once a day Taking Nasacort Allergy 24HR 55 MCG/ACT Aerosol 1 spray in each nostril Nasally Once a day , Notes to Pharmacist: PRNTaking ZyrTEC 10 tablet take 1 tablet 10 mg oral QD PRN , Notes to Pharmacist: PRNTaking busPIRone HCl 10 MG Tablet 1 tablet Orally Twice a day Taking Multivitamin Gummies Adult - Tablet Chewable Orally Taking Ventolin HFA 108 (90 Base) MCG/ACT Aerosol Solution inhale 2 puffs by in Inhalation every 4 hrs prn , Notes to Pharmacist: PRNTaking Escitalopram Oxalate 20 MG Tablet Oral Taking Mirtazapine 15 MG Tablet TAKE 1 TABLET BY MOUTH EVERY DAY Oral Not-TakingArnuity Ellipta 100 MCG/ACT Aerosol Powder Breath Activated 1 puff Inhalation Once a day LaMICtal 100 MG Tablet 1 tablet Orally Once a day Lexapro 10 MG Tablet 3 tablets Orally Once a day Calcium Gummies 250-100-500 MG-UNIT Tablet Chewable as directed Orally Vitamin D Kym 3-0.02 MG Tablet 1 tablet Orally Once a day Flonase Allergy Relief 50 MCG/ACT Suspension 1 spray in each nostril Nasally Once a day Asmanex 60 Metered Doses 220 MCG/INH Aerosol Powder Breath Activated 1 puff Inhalation once a day Asmanex (30 Metered Doses) 220 MCG/INH Aerosol Powder Breath Activated Take 1 puff daily Medication List reviewed and reconciled with the patientNot-Taking Arnuity Ellipta 100 MCG/ACT Aerosol Powder Breath Activated 1 puff Inhalation Once a day Not-Taking LaMICtal 100 MG Tablet 1 tablet Orally Once a day Not-Taking Lexapro 10 MG Tablet 3 tablets Orally Once a day Not-Taking Calcium Gummies 250-100-500 MG-UNIT Tablet Chewable as directed Orally Not-Taking Vitamin D Not-Taking Kym 3-0.02 MG Tablet 1 tablet Orally Once a day Not-Taking Flonase Allergy Relief 50 MCG/ACT Suspension 1 spray in each nostril Nasally Once a day Not-Taking Asmanex 60 Metered Doses 220 MCG/INH Aerosol Powder Breath Activated 1 puff Inhalation once a day Not-Taking Asmanex (30 Metered Doses) 220 MCG/INH Aerosol Powder Breath Activated Take 1 puff daily Medication List reviewed and reconciled with the patient * Allergies:?DogsCladosporiumC atsDust MiteTreesNKDAno[Allergies Verified] Objective: * Vitals:?HR:86bpm, Oxygen sat %:97%, Ht: 63 in, Wt:140lbs, BMI:24.8Index, FeNO:264ppb. * Examination: ???General Examination: ?GENERAL APPEARANCE:?in no acute distress, well developed, well nourished.?HEAD:?normocephalic, atraumatic.?EYES:?no conjunctival injection, sclera anicteric, eyelids without rash.?NOSE:?septum without significant deviation, turbinates?and mucosa normal, no polyps, no significant rhinorrhea.?ORAL CAVITY:?gums healthy, no ulceration.?THROAT:?clear, no post-nasal drainage.?NECK/THYROID:?no thyromegaly, neck supple, trachea midline.?LYMPH NODES:?no supraclavicular or cervical adenopathy.?SKIN:?limited skin examination revealed no active rash. no eczema.?HEART:?regular rate and rhythm, no murmurs.?LUNGS?clear to auscultation bilaterally, good air movement, normal respiratory effort.?CHEST:? no visible deformity.?EXTREMITIES:? no clubbing, cyanosis. no edema.?NEUROLOGIC:?alert, grossly oriented to person, place and time.?PSYCH:?mood and affect normal, cooperative with exam.? Assessment: * Assessment: 1.?Moderate persistent asthm a, unspecified whether complicated - J45.40 (Primary)???2.?Other chronic sinusitis - J32.8???3.?Nasal turbinate hypertrophy - J34.3???4.?Hyposmia - R43.8???5.?Nasal congestion - R09.81 ??6.?Allergic rhinitis due to dust mite - J30.89???7.?Allergic rhinitis due to animal dander - J30.81???8.?Chronic seasonal allergic rhinitis due to pollen - J30.1???9.?Allergic rhinitis due to mold - J30.89?? 10.?Allergic conjunctivitis of both eyes - H10.13???11.?Mild persistent asthma, well controlled - J45.30???Notes :now more like intermittent??? Plan: * Treatment: 2.?Other chronic sinusitis? Notes: Much improved status post sinus surgery last summer. I still do not have a copy of the sinus CT to confirm if the patient indeed had polyps that needed to be removed or not. Since patient is doing better currently we will monitor and track down if necessary.?? 3.?Nasal turbinate hypertrop hy? Notes: Much improved status post turbinectomy last summer.?? 4.?Hyposmia? Notes: Much improved status post turbinectomy and sinus surgery last summer.?? 5.?Nasal congestion? Notes: Much improved status post sinus surgery last summer with allergy immunotherapy for 5 years. Still occasionally uses allergy meds as needed but is much improved.?? 6.?Allergic conjunctivitis o f both eyes? Notes: Asymptomatic?? 7.?Mild persistent asthma, w ell controlled? Refill Arnuity Ellipta Aerosol Powder Breath Activated, 100 MCG/ACT, 1 puff, Inhalation, Once a day, 90 days, 3, Refills 1.?? Notes: Previously she was mild intermittent but based on today's spirometry and exhaled nitric oxide measurement I think she is at least mild persistent but at risk of moderate persistent. Will call in Arnuity refill. Restart Arnuity and we will start at the 100 dose and titrate depending on response to therapy.?? 8.?Others? Notes: Total time spent on patient care today, including qsnm-pc-uodm and fmo-xllx-bb-face activities, was [45] minutes. Speech recognition software was used to create this documentation, which may create minor typographical errors. Effort was made to proofread. Please notify the author if there is confusion regarding interpretation of what is written, and/or if inconsistencies or errors persist.?? * Imaging:? * ?Imaging: SPIROMETRY (Pe rformed Date - 08/05/2024)?Slightly decreased from previous and slightly obstructed with exhaled nitric oxide measurement significantly elevated at 264 ppb. ? Value Reference Range ?FEV1 (L) 2.92 * ?FEV1 (%) 91 * ?FVC (L) 3.74 * ?FVC (%) 102 * ?FEV1/FVC 0.78 * ?FEF 25-75% (L) 2.87 * ?FEF 25-75% (%) 78 * ?Imaging: POST SPIROMETRY (Performed Date - 08/05/2024)?Significant bronchodilator response with reversible obstruction with an FEV1 improvement of 380 mL equivalent to 13% improvement after albuterol* * ? Value Reference Range ?FEV1 (L) 3.30 * ?FEV1 (%) 102 * ?FEV1 (% Change) 13 * ?FVC (L) 3.86 * ?FVC (%) 105 * ?FVC (% Change) 3 * ?FEV1/FVC 0.85 * ?FEF 25-75% (L) 3.31 * ?FEF 25-75% (%) 90 * ?FEF 25-27% (% Change) 15 * * Procedure Codes:?50598 EXHAL ED NITRIC OXIDE [id number] PT-FOCUSED HLTH RISK [id number] SPRIOMETRY CHALLENGE * Follow Up:?4 Months * * Sign off status: Completed true * Provider:?Thomas Mejia M.D. Date:?08/05 Generated for Bibianai neena/Rosalva/eTransmitting on:?08/28/2024 06:08 PM EDT History and Physical Notes * HPI (History of Present Illness) Category Sub-Category Detail Notes Asthma Asthma Control Care Plan Tool Mo st recently used:: Asthma Control Test (ACT) ?ACT Score:: 25 Examination Category Sub-Category Detail Notes General Examination GENERAL APPEARANCE: in no ac delilah distress, well developed, well nourished HEAD: normocephalic, atrau matic EYES: no conjunctival inje ction, sclera anicteric, eyelids without rash NOSE: septum without signi ficant deviation, turbinates?and mucosa normal, no polyps, no significant rhinorrhea THROAT: clear, no post-nasal drainage NECK/THYROID: no thyromegaly, neck supple, trachea midline HEART: regular rate and rhy thm, no murmurs CHEST: no visible deformity LUNGS clear to auscultatio n bilaterally, good air movement, normal respiratory effort NEUROLOGIC: alert, grossly orien hussein to person, place and time SKIN: limited skin examina tion revealed no active rash. no eczema EXTREMITIES: no clubbing, cyanosi s. no edema LYMPH NODES: no supraclavicular o r cervical adenopathy PSYCH: mood and affect norm al, cooperative with exam ORAL CAVITY: gums healthy, no ulc eration
--- OUTSIDE RECORDS SUMMARY | 2024-08-28 17:08 | XMS_ITS ---
Author [facility] Address [address] [place] [address] Care Team Providers Care Strainer Mill Operator Name Role Phone Gladys Goff Primary Care Provider Unavailmary ann Mejia MD, Thomas Unavailable [phone] Kei Fitch MD, Ally Unavailable Unavailable REASON FOR VISIT arnuity not covered Medications Medication SIG (Take, Route, Frequency, Duration) Notes Start Date End Date Status Pulmicort Flexhaler 90 MCG/ACT 2 puffs Inhalation Twice a day for 30 days 08/05/2024 Active Encounters Encounter Location Date Provider Diagnosis [facility] [address] [address] 08/05/2024 Thomas Mejia Plan Of Treatment Medication Medication Name Sig Start Date Stop Date Notes Pulmicort Flexhaler 90 MCG/ACT 2 puffs Inhalation Twice a day for 30 days 08/05/2024 Progress Notes * Elin CARRANZA CDOB:2005 (19 yo F)Acc No.[id number]:08/05/2024 Patient:?Elin CARRANZA :2005???Age:19 Y???Sex:Female Phone: Address:[address] [place] [address] , [place], [address] * Refills? Start Pulmicort Flexhaler Aerosol Powder Breath Activated, 90 MCG/ACT, Inhalation, 1, 2 puffs, Twice a day, 30 days, Refills=3 * true * Date:? Generated for Printi ng/Faxing/eTransmitting on:?08/28/2024 06:08 PM EDT
--- OUTSIDE RECORDS SUMMARY | 2024-08-28 17:08 | XMS_ITS | Clinical Summary ---
Author Organization [facility] Address [address] [place] [address] Care Team Providers Care Caser Name Role Phone Unavailable Primary Care Provider Unavailabl e Source Comments Patient records contain information from all sites at [facility]. For routine questions regarding patient records, call [phone] during business hours, M-F 8:00 AM - 5:00 PM Central Time. Record requests for emergency care only can be directed to [phone] at any time.[facility] Allergies No known active allergies Medications Medication Sig Dispensed Refills Start Date End Date Status oxyCODONE (ROXICODONE) 5 mg immediate release tabletIndications:Acut e Pain Take 1 tablet (5 mg total) by mouth every 4 (four) hours as needed for pain Indication: Acute Pain. 6 tablet 08/26/2023 Active Social History Tobacco Use Types Packs/Day Years Used Date Smoking Tobacco: Never Assessed Nutrition Answer Date Recorded Nutrition: EVOO Fat Source Unknown 08/26 Nutrition: Servings of Fruits/Vegetables per Day Not on file 08/26/2023 Dental Answer Date Recorded Dental: Regular Dentist Unknown 08/26/20 23 Sex and Gender Information Value Date Recorded Sex Assigned at Not on file Gender Identity Not on file Sexual Orientation Not on file Last Filed Vital Signs Vital Sign Reading Time Taken Comments Blood Pressure 117/79 08/26/2023 4:30 PM CDT Pulse 62 08/26/2023 4:45 PM CDT Temperature 36.2 ??C (97.2 ??F) 08/26/2023 3:15 PM CD T Respiratory Rate 16 08/26/2023 4:45 PM CDT Oxygen Saturation 99% 08/26/2023 4:45 PM CDT Inhaled Oxygen Concentration - - Weight 64 kg (141 lb 1.5 oz) 08/26/2023 12:41 PM CDT Height 160 cm (5' 3) 08/26/2023 12:41 PM CDT Body Mass Index 24.99 08/26/2023 12:41 PM CDT Plan of Treatment Health Maintenance Due Date Last Done Comments Cervical Cancer Screening 2003 Chlamydia and Gonorrhea Screening 2003 HIV Screening 2003 Hearing Screening during Well Child Visit 2003 Hepatitis C Screening 2003 TB Screening during Well Child Visit 2003 1 week Well Child Check-Up 2003 1 month Well Child Check-Up 2003 2 month Well Child Check-Up 2003 4 month Well Child Check-Up 2003 6 month Well Child Check-Up 2003 9 month Well Child Check-Up 2003 12 month Well Child Check-Up 02/09/2004 15 month Well Child Check-Up 05/11/2004 18 month Well Child Check-Up 08/11/2004 2 year Well Child Check-Up 02/08/2005 30 month Well Child Check-Up 08/11/2005 3 year Well Child Check-Up 02/08/2006 Well Child Check-Up Completed in Past Year 02/08/2006 4 year Well Child Check-Up 02/08/2007 5 year Well Child Check-Up 02/09/2008 6 year Well Child Check-Up 02/08/2009 7 year Well Child Check-Up 02/08/2010 8 year Well Child Check-Up 02/08/2011 9 year Well Child Check-Up 02/09/2012 10 year Well Child Check-Up 02/08/2013 11 year Well Child Check-Up 02/08/2014 DTaP,Tdap,and Td Vaccines (5 - Tdap) 2014 03/18/2007, 2003, 2003, Additional history exists 12 year Well Child Check-Up 02/08/2015 13 year Well Child Check-Up 02/09/2016 14 year Well Child Check-Up 02/08/2017 13 year Well Child Check-Up 02/08/2018 HPV Vaccines (1 - 3-dose series) 2018 16 year Well Child Check-Up 02/08/2019 17 year Well Child Check-Up 02/09/2020 18 year Well Child Check-Up 02/08/2021 19 year Well Child Check-Up 02/08/2022 20 year Well Child Check-Up 02/08/2023 Depression Screening (Annual PHQ-2) 12/01/2023 19 year Well Child Check-Up 02/09/2024 Well Child Check-Up ([facility]) 02/09/2024 COVID-19 Vaccine ( season) 2024 08/29/2022 Influenza Vaccine (#1) 2024 2, 08/30/2009, 09/16/2007 Hepatitis B Vaccines Completed 03/20/2004, 2003, 2003 Pneumococcal vaccine (0-64 years) Aged Out 09/12/2004, 2003, 2003, Additional history exists No longer eligible based on patient's age to complete this topic Meningococcal Vaccine Aged Out No abhishek jose eligible based on patient's age to complete this topic
--- OUTSIDE RECORDS SUMMARY | 2024-08-28 17:08 | XMS_ITS ---
Author Organization [facility] Address [address] [place] [address] Care Team Providers Care Import/Export Freight Forwarder Name Role Phone Unavailable Unavailable Unavailable Surgery Details Not on file Complications Check Surgery Details section. Procedure Estimated Blood Loss Check Surgery Details section. Procedure Findings Check Surgery Details section. Procedure Specimens Taken Check Surgery Details section.
--- OUTSIDE RECORDS SUMMARY | 2024-08-28 17:08 | XMS_ITS ---
[facility] Address [address] [facility] [address] [place] [address] Care Team Providers Care Tool And Equipment Rental Clerk Name Role Phone Shell Gladys Primary Care Provider Carla Mejia MD, Thomas Unavailable [phone] Kei Fitch MD, Ally Unavailable Unavailable REASON FOR VISIT Covid POS SOB Encounters Encounter Location Date Provider Diagnosis [facility] [place] [address] [facility] [address] [place] [address] 08/28/2024 Thomas Mejia Plan Of Treatment No Information Progress Notes * Elin CARRANZA CDOB:2005 (19 yo F)Acc No.[id number]:08/28/2024 Patient:?Elin CARRANZA :2005???Age:19 Y???Sex:Female Phone: Address:[address] [place], [address] * true * Date:? Generated for Printi ng/Fachinog/eTransmitting on:?08/28/2024 06:08 PM EDT
--- OUTSIDE RECORDS SUMMARY | 2024-08-28 17:08 | XMS_ITS | Referral Summary ---
Author Organization [facility] Address [address] [place] [address] Care Team Providers Care First Line Supervisor Name Role Phone Unavailable Primary Care Provider Unavailabl e Source Comments Patient records contain information from all sites at [facility]. For routine questions regarding patient records, call [phone] during business hours, M-F 8:00 AM - 5:00 PM Central Time. Record requests for emergency care only can be directed to [phone] at any time.[facility] Allergies No known active allergies Medications Medication [...] 08/26/2023 12:41 PM CDT Plan of Treatment Not on file
--- OUTSIDE RECORDS SUMMARY | 2024-08-28 17:09 | XMS_ITS | Encounter Summary ---
Author Organization [facility] Address [address] [place] [address] Care Team Providers Care Creative Services Producer Name Role Phone Les Haq MD Unavailable [phone] Les Haq MD Unavailable [phone] Harpreet Campbell NP Unavailable Juliet Lubin MD Primary Care Provider [phone] Ally Bianchi MD Primary Care Provider [phone] Juliet Lubin MD Primary Care Provider [phone] Ally Bianchi MD Primary Care Provider [phone] Gladys Goff MD Primary Care Provider [phone] Encounter Details Date Type Department Care Team (Late st Contact Info) Description 08/30/2013 Orders Only [facility] Endocrinology [place] [address] [phone] Harpreet Campbell, BHAVYA [address] [id number] Social History Tobacco Use Types Packs/Day Years Used Date Smoking Tobacco: Never Alcohol Use Standard Drinks/Week Comments Not Asked 0 (1 standard drink = 0.6 oz pur e alcohol) Substance Use Types Use/Week Comments Not Asked Sex and Gender Information Value Date Recorded Sex Assigned at Not on file Gender Identity Not on file Sexual Orientation Not on file Job Start Date Occupation Industry Not on file Not on file Not on file documented as of this encounter Progress Notes * Harpreet Campbell NP - 08/27/2013 4:48 PM EDTQuick Note: 8y female with early puberty and mild thyromegaly with minimally positive thyroglobulin antibodies. Not on thyroid hormone replacement. TSH and FT4 normal. No need for thyroid hormone replacement. Will repeat thyroid function tests in 6 months. documented in this encounter Plan of Treatment Not on file documented as of this encounter Procedures Procedure Name Priority Date/Time Associated Diagnosis Comments TSH Routine 08/26/2013 3:21 PM EDT Early puberty THYROXINE FREE Routine 08/26/2013 3:21 PM EDT Early puberty documented in this encounter Results * TSH (08/26/2013 3:21 PM EDT) TSH 3.23 0.60 - 5.50 uIU/mL [facility] Comment: Reference ranges for infants and prepubertal children are suggested ranges. Blood specimen (specimen) 08/26/2013 3:21 PM EDT 08/26/2013 8:49 PM EDT Harpreet Campbell NP CHEMISTRY ORDERABLES [facility] [address] [place] [address] [facility] [address] [place] [address] Planograph Operator: Deedee Leiva MD, PhD * THYROXINE FREE (08/26/2013 3:21 PM EDT) Thyroxine Free 1.03 0.90 - 1.70 ng/dL [facility] Blood specimen (specimen) 08/26/2013 3:21 PM EDT 08/26/2013 8:49 PM EDT Harpreet Campbell SUPERVISOR QUALITY CONTROL CHEMISTRY ORDERABLES Performing Organization Address City/State/[facility] Co de Phone Number [facility] [address] [place] [address] [facility] [address] [place] [address] Planograph Operator: Deedee Leiva MD, PhD documented in this encounter Visit Diagnoses Diagnosis 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, not elsewhere classified documented in this encounter Care Teams Creative Services Producer Relationship Specialty Start Date End Date Les Haq MD [address] [place] [address] PCP - Pediatric Endocrinology (change to care team) 07/13/12 10/18/16 Les Haq MD [address] [place] [address] PCP - Hospital (change to care team) 02/13/12 09/10/16 Juliet Lubin MD [address] [place] [address] PCP - General Pediatrics 03/01/13 07/24/15 Ally Bianchi MD [address] [place] [address] PCP - General Pediatrics 07/25/15 03/05/16 Juliet Lubin MD [address] [place] [address] PCP - General Pediatrics 03/06/16 01/07/19 Ally Bianchi MD [address] [place] [address] PCP - General Pediatrics 01/08/19 11/04/22 Gladys Goff MD [address] [place] [phone] PCP - General Internal Medicine 11/05/22 Harpreet Campbell NP [address] [place] [phone] Nurse Practitioner Pediatric Endocrinology 02/14/12 documented as of this encounter
--- OUTSIDE RECORDS SUMMARY | 2024-08-28 17:09 | XMS_ITS | Referral Summary ---
Author Organization [facility] Address [address] [place] [address] Care Team Providers Care Mold Bunch Trimmer Name Role Phone Harpreet Campbell DIE CUTTER DIAMOND Unavailable Gladys Goff MD Primary Care Provider [phone] Allergies Active Allergy Reactions Criticality Noted Date Comments Animal Dander (Da) Other (See Comments) 2011 Dog - itchy, watery eyes Cat Saliva Other (See Comments) 02/13/2012 Wheezing Dust/Dust Mites (Da) 02/13/2012 Molds & Smuts 04/23/2017 Tree Extract 04/23/2017 Maple tree pollen Medications Medication Sig Dispensed Refills Start Date End Date Status albuterol HFA 108 (90 BASE) MCG/ACT AERS Inhalation as needed 0 Acti ve escitalopram 5 MG TabIndications:Tran deanna's thyroiditis Take 30 mg by mouth nightly. 0 Active lamoTRIgine (LaMICtal) 25 MG Tab Take 100 mg by mouth at bedtime. 0 Active buPROPion SR (Wellbutrin SR) 100 MG Tablet SR 12 hr Take 100 mg by mouth 2 times daily. 0 Active levoNORGestrel (MIRENA) 20 MCG/DAY IUD by Intrauterine route once. 0 Active Multiple Vitamin (multivitamin) Tab Take 1 Tablet by mouth daily. 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 Repeat thyroid antibodies negative in 12/2016 Not on LT4 Early puberty 02/04/2012 Moderate persistent asthma ([facility]) Resolved Problems Problem Noted Date Diagnosed Date Resolved Date Nasal septal deviation 12/09/202211/13 Hypertrophy of both inferior nasal turbinates 12/09/1911/13/2023 Acute recurrent maxillary sinusitis 12/09/2022 11/13/2023 Acute recurrent ethmoidal sinusitis 12/09/2022 11/13/2023 Appendicitis 07/25/2015 07/26/2015 Immunizations Name Administration Dates Next Due DTaP Vaccine 03/18/2007, 4,2003,2002,2003 HepB HiB Vaccine 03/20/2004,2003, 3 Influenza Vaccine 08/30/2009,09/16/2007 MMR Vaccine 03/18/2007,06/12/2004 Pneumococcal (PCV-7) Vaccine 09/12/2004, 2003,2003,2002 Poliovirus Vaccine Inactivated (IPV) ,2003,2003,2002 Typhoid Vaccine IM 04/08/2019 Varicella Vaccine 03/18/2007,06/12/2004 Social History Tobacco Use Types Packs/Day Years Used Date Smoking Tobacco: Never Smokeless Tobacco: Never Tobacco Cessation:Counseling Given: Not Answered Alcohol Use Standard Drinks/Week Comments Yes 2 (1 standard drink = 0.6 oz pur e alcohol) Substance Use Types Use/Week Comments Not Currently Sex and Gender Information Value Date Recorded Sex Assigned at Not on file Gender Identity Not on file Sexual Orientation Not on file Job Start Date Occupation Industry Not on file Not on file Not on file Last Filed Vital Signs Vital Sign Reading Time Taken Comments Blood Pressure 125/69 07/25/2023 3:00 PM EDT Pulse 88 07/25/2023 1:00 PM EDT Temperature 36.7 ??C (98.1 ??F) 07/25/2023 3:00 PM ED T Respiratory Rate 18 07/30/2023 10:44 AM EDT Oxygen Saturation 95% 07/25/2023 3:00 PM EDT Inhaled Oxygen Concentration 95% 07/25/2023 3 :00 PM EDT Weight 65.8 kg (145 lb) 07/30/2023 10:44 AM EDT Height 160 cm (5' 3) 07/30/2023 10:44 AM EDT Body Mass Index 25.69 07/30/2023 10:44 AM EDT Functional Status Functional Status Response Date of Assessment Stat us Are you deaf or do you have serious difficulty hearing? No 07/25/2023 Active Are you blind or do you have serious difficulty seeing, even when wearing glasses? No 07/25/2023 Activ e Do you have serious difficul ty walking or climbing stairs? (5 years old or older) No 07/25/2023 Active Do you have difficulty dress ing or bathing? (5 years old or older) No 07/25/2023 Active Because of a physical, menta l, or emotional condition, do you have difficulty doing errands alone such as visiting a doctor's office or shopping? (15 years old or older) No 07/25/2023 Active Cognitive Status Response Date of Assessment Statu s Because of a physical, menta l, or emotional condition, do you have serious difficulty concentrating, remembering, or making decisions? (5 years old or older) No 07/25/2023 Active Plan of Treatment Not on file Insurance Payer Benefit Plan / Group Subscriber ID Effective Dates Phone Address Type AETNA AETNA POS [id number] 2015-Present [address] [place] [address] POS Advance Directives For more information, please contact: [phone] * Full Code (Latest Code Status on File) Date Activated Date Inactivated Comments 07/24/2023 12:32 AM 07/25/2023 7:13 PM * Full Code Date Activated Date Inactivated Comments 07/25/2015 10:58 PM 07/26/2015 2:21 PM Care Teams Mold Bunch Trimmer Relationship Specialty Start Date End Date Gladys Goff MD [address] [facility] [address] [place] [address] PCP - General Internal Medicine 11/05/22 Harpreet Capmbell NP [address] [place] [address] [address] [place] [phone] Nurse Practitioner Pediatric Endocrinology 02/14/12
--- OUTSIDE RECORDS SUMMARY | 2024-08-28 17:09 | XMS_ITS | Clinical Summary ---
Author Organization [facility] Address [address] [place] [address] Care Team Providers Care Tomography Technologist Name Role Phone Harpreet Campbell LAN ANALYST Unavailable Gladys Goff MD Primary Care Provider [phone] Allergies Active Allergy Reactions Criticality Noted Date [...] LT4 Early puberty 02/04/2012 Moderate persistent asthma ([facility]) Resolved Problems Problem Noted Date Diagnosed Date [...] Typhoid Vaccine IM 04/08/2019 Varicella Vaccine 03/18/2007,06/12/2004 Family History Medical History Relation Name Comments Colitis/Bowel Disease Father Neuropathy Maternal Grandfather Parkinsonism Maternal Grandfather Breast Cancer Maternal Grandmother Cancer Mother melanoma Diabetes Neg Hx Early Puberty Neg Hx Growth Problems Neg Hx Thyroid Disease Neg Hx Relation Name Status Comments Father Maternal Grandfather Maternal Grandmother Mother Social History Tobacco Use Types Packs/Day Years [...] Mass Index 25.69 07/30/2023 10:44 AM EDT Plan of Treatment Health Maintenance Due Date Last Done Comments Chlamydia Screening 2003 Asthma: Action Plan 2003 Asthma: Symptom Control 2003 Pediatric Cardiac Risk Screening 2006 Well Child Visit Annual 2006 Asthma: Spirometry 2009 Pneumococcal: Peds (0-5y) OR At-Risk Patient (6-64y) (1 of 1 - PPSV23 or PCV20) 2009 09/12/2004, 2003, 2003, Additional history exists HIV Screening with Documente d Verbal Consent 2018 HPV Vaccines (1 - 3-dose series) 2018 Depression Screening 01/11/2020 01/11/2019, 01/11/20 Hepatitis C Screening 2021 TDAP/TD Vaccine 18+ 2021 Cervical Cancer Screening 2024 COVID-19 Vaccine (4 - 2023-2 5 season) 2024 10/29/2021, 03/28/2021, 03/08/2021 Influenza Vaccine (#1) 2024 , 09/13/2014, 05/06/2011, Additional history exists Hepatitis B Vaccines Completed 03/20/2004, 03/20/2004, 2003, Additional history exists Varicella Vaccines Completed 03/18/2007, 06/12/2004 Insurance Payer Benefit Plan / Group Subscriber ID Effective Dates Phone Address Type AETNA AETNA POS [id number] 2015-Present [address] [place] [id number] POS Advance Directives For more information, please contact: [phone] * Full Code (Latest Code Status on File) Date Activated Date Inactivated Comments 07/24/2023 12:32 AM 07/25/2023 7:13 PM * Full Code Date Activated Date Inactivated Comments 07/25/2015 10:58 PM 07/26/2015 2:21 PM Care Teams Tomography Technologist Relationship Specialty Start Date End Date Gladys Goff MD [address] [facility] [address] [place] [phone] PCP - General Internal Medicine 11/05/22 Harpreet Campbell NP [address] [place] [phone] Nurse Practitioner Pediatric Endocrinology 02/14/12
--- OUTSIDE RECORDS SUMMARY | 2024-08-28 17:09 | XMS_ITS | Encounter Summary ---
Author Organization [facility] Address [address] [place] [address] Care Team Providers Care Language Instructor Name Role Phone Harpreet Campbell CPS TEAM LEAD Unavailable Juliet Lubin MD Primary Care Provider Ally Bianchi MD Primary Care Provider + [phone] Gladys Goff MD Primary Care Provider [phone] Encounter Details Date Type Department Care Team (Late st Contact Info) Description 12/09/2016 Orders Only [facility] Endocrinology [place] [address] [facility] [address] [place] [phone] Harpreet Campbell, BHAVYA [address] [facility] 2nd [place] [address] Social History Tobacco Use Types Packs/Day Years [...] on file documented as of this encounter Functional Status Functional Status Response Date of Assessment Stat us Are you deaf or do you have serious difficulty hearing? No 07/25/2015 Active Are you blind or do you have serious difficulty seeing, even when wearing glasses? No 07/25/2015 Activ e Do you have serious difficul ty walking or climbing stairs? (5 years old or older) No 07/25/2015 Active Do you have difficulty dress ing or bathing? (5 years old or older) No 07/25/2015 Active Cognitive Status Response Date of Assessment Statu s Because of a physical, menta l, or emotional condition, do you have serious difficulty concentrating, remembering, or making decisions? (5 years old or older) No 07/25/2015 Active documented as of this encounter Miscellaneous Notes * Telephone Encounter - Harpreet Campbell NP - 12/25/2016 11:03 AM ESTQuick Note: 11y female with h/o euthyroid Jurgen's thyroiditis and early (but not precocious) puberty. She had very mildly positive thyroid antibodies in the past with mild thyromegaly, but thyroid function tests have been consistently normal without thyroid hormone replacement. She appears clinically euthroid today. Her thyroid gland is top normal in size. Repeat thyroid function tests remain normal and thyroid antibodies are negative. No need to repeat thyroid function tests unless new concerns arise. Will send normal lab letter to the family. Will send message to [facility] to schedule follow-up with me in March as there are no appointments currently scheduled. documented in this encounter Plan of Treatment Not on file documented as of this encounter Procedures Procedure Name Priority Date/Time Associated Diagnosis Comments THYROGLOBULIN AB SCREEN + TPO AB Routine 12/12/2016 7:37 PM EST Euthyroid Jurgen's thyroiditis TSH Routine 12/12/2016 7:37 PM EST Euthyroid Jurgen's thyroiditis THYROXINE FREE Routine 12/12/2016 7:37 PM EST Euthyroid Jurgen's thyroiditis documented in this encounter Results * THYROGLOBULIN AB SCREEN + TPO AB (12/12/2016 7:37 PM EST) Thyroglobulin Ab Screen 0.1 <0.6 U [facility] Comment: NEGATIVE: <0.6 U WEAK POSITIVE: 0.6 - 1.0 U MODERATE POSITIVE TO STRONG POSITIVE: >1.0 U Thyroid Peroxidase Ab <62.5 <=100 U [facility] 12/12/2016 7:37 PM EST 12/13/2016 12:31 AM EST Harpreet Eimicke CPS TEAM LEAD IMMUNOLOGY ORDERABLE S Performing Organization Address City/[facility]/ZIP Co de Phone Number [address] [place] [address] Tag Machine Operator: Deedee Leiva MD, PhD * THYROXINE FREE (12/12/2016 7:37 PM EST) Thyroxine Free 1.12 0.90 - 1.70 ng/dL [facility] Blood specimen (specimen) 12/12/2016 7:37 PM EST 12/13/2016 12:31 AM EST Harpreet Eimicke CPS TEAM LEAD CHEMISTRY ORDERABLES Performing Organization Address [facility] Co de Phone Number [address] [place] [address] Tag Machine Operator: Deedee Leiva MD, PhD * TSH (12/12/2016 7:37 PM EST) TSH 1.54 0.27 - 4.20 uIU/mL [facility] Blood specimen (specimen) 12/12/2016 7:37 PM EST 12/13/2016 12:31 AM EST Harpreet Eimicke CPS TEAM LEAD CHEMISTRY ORDERABLES Performing Organization Address City/[facility] Co de Phone Number [address] [place] [address] Tag Machine Operator: Deedee Leiva MD, PhD documented in this encounter Visit Diagnoses Diagnosis 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
--- OUTSIDE RECORDS SUMMARY | 2024-08-28 17:09 | XMS_ITS | Encounter Summary ---
Author Organization [facility] Address [address] [place] [address] Care Team Providers Care Scarfer Operator Name Role Phone Provider, Unknown Primary Care Provider Unavaila ble Les Haq MD Unavailable [phone] Les Haq MD Unavailable [phone] Harpreet Campbell NP Unavailable Jluiet Lubin MD Primary Care Provider [phone] Ally Bianchi MD Primary Care Provider [phone] Juliet Lubin MD Primary Care Provider [phone] Ally Bianchi MD Primary Care Provider [phone] Gladys Goff MD Primary Care Provider [phone] Encounter Details Date Type Department Care Team (Late st Contact Info) Description 02/13/2012 Hospital Visit [facility] OUTPATIENT Provider, Unknown Social History Tobacco Use Types Packs/Day Years [...] on file documented as of this encounter Plan of Treatment Not on file documented as of this encounter Visit Diagnoses Not on filedocumented in this encounter Care Teams Scarfer Operator Relationship Specialty Start Date End Date Provider, Unknown PCP - General 05/08/10 02/28/13 Les Haq MD [address] [place] [address] PCP - Pediatric Endocrinology (change to care team) 07/13/12 10/18/16 Les Haq MD [address] [place] [address] PCP - Hospital (change to care team) 02/13/12 09/10/16 Juliet Lubin MD [address] [place] [address] PCP - General Pediatrics 03/01/13 07/24/15 Ally Bianchi MD [address] [place] [address] PCP - General Pediatrics 07/25/15 03/05/16 Juliet Lubin MD [address] [place] [address] PCP - General Pediatrics 03/06/16 01/07/19 Ally Bianchi MD [address] [place] [address] PCP - General Pediatrics 01/08/19 11/04/22 Gladys Goff MD [address] [phone] PCP - General Internal Medicine 11/05/22 Harpreet Campbell NP [address] [place] [phone] Nurse Practitioner Pediatric Endocrinology 02/14/12 documented as of this encounter
--- OUTSIDE RECORDS SUMMARY | 2024-08-28 17:09 | XMS_ITS | Encounter Summary ---
Author Organization [facility] Address [address] [place] [address] Care Team Providers Care Pattern Mechanic Name Role Phone Les Haq MD Unavailable [phone] Les Haq MD Unavailable [phone] Harpreet Campbell NP Unavailable Juliet Lubin MD Primary Care Provider [phone] Ally Bianchi MD Primary Care Provider [phone] Juliet Lubin MD Primary Care Provider [phone] Ally Bianchi MD Primary Care Provider [phone] Gladys Goff MD Primary Care Provider [phone] Encounter Details Date Type Department Care Team (Late st Contact Info) Description 10/24/2014 Orders Only [facility] Endocrinology [place] [address] [phone] Harpreet Campbell, BHAVYA [address] [id number] Social History Tobacco Use Types Packs/Day Years [...] on file documented as of this encounter Miscellaneous Notes * Telephone Encounter - Les Haq MD - 11/15/2014 4:50 PM ESTQuick Note: I agree with the plan stated. Thank you. * Telephone Encounter - Harpreet Campbell NP - 11/09/2014 10:08 AM ESTQuick Note: 9 y female with early puberty and mild thyromegaly with minimally positive thyroglobulin antibodies. Not on thyroid hormone replacement. TSH and FT4 normal. No need for thyroid hormone replacement. Suggest we can repeat thyroid functiontests in 1 year at this point given they have been stable and given TPO antibody was only very mildly elevated in the past. Thyroid is about 12-15 grams. Do you agree with a 1 year repeat lab evaluation? documented in this encounter Plan of Treatment Not on file documented as of this encounter Procedures Procedure Name Priority Date/Time Associated Diagnosis Comments TSH Routine 11/03/2014 9:36 AM EST Euthyroid Jurgen's thyroiditis THYROXINE FREE Routine 11/03/2014 9:36 AM EST Euthyroid Jurgen's thyroiditis documented in this encounter Results * THYROXINE FREE (11/03/2014 9:36 AM EST) Thyroxine Free 1.08 0.90 - 1.70 ng/dL [facility] Blood specimen (specimen) 11/03/2014 9:36 AM EST 11/03/2014 9:37 AM EST Harpreet Campbell NP CHEMISTRY ORDERABLES [facility] [address] [place] [address] Boat Loader: Deedee Leiva MD, PhD * TSH (11/03/2014 9:36 AM EST) TSH 2.94 0.60 - 5.50 uIU/mL [facility] Comment: Reference ranges for infants and prepubertal children are suggested ranges. 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 documented in this encounter Care Teams Pattern Mechanic Relationship Specialty Start Date End Date Les Haq MD [address] [place] [address] PCP - Pediatric Endocrinology (change to care team) 07/13/12 10/18/16 Les Haq MD [address] [place] [address] PCP - Hospital (change to care team) 02/13/12 09/10/16 Juliet Lubin MD [address] [place] [address] PCP - General Pediatrics 03/01/13 07/24/15 Ally Bianchi MD [address] [place] [address] PCP - General Pediatrics 07/25/15 03/05/16 Juliet Lubin MD [address] [place] [address] PCP - General Pediatrics 03/06/16 01/07/19 Ally Bianchi MD [address] [place] [address] PCP - General Pediatrics 01/08/19 11/04/22 Gladys Goff MD [address] [place] [phone] PCP - General Internal Medicine 11/05/22 Harpreet Campbell NP [address] [place] [phone] Nurse Practitioner Pediatric Endocrinology 02/14/12 documented as of this encounter
--- OUTSIDE RECORDS SUMMARY | 2024-08-28 17:09 | XMS_ITS | Encounter Summary ---
Author Organization [facility] Address [address] [place] [address] Care Team Providers Care Story Editor Name Role Phone Les Haq MD Unavailable [phone] Les Haq MD Unavailable [phone] Harpreet Campbell NP Unavailable Juliet Lubin MD Primary Care Provider [phone] Ally Bianchi MD Primary Care Provider [phone] Juliet Lubin MD Primary Care Provider [phone] Ally Bianchi MD Primary Care Provider [phone] Gladys Goff MD Primary Care Provider [phone] Encounter Details Date Type Department Care Team (Late st Contact Info) Description 02/24/2014 Orders Only [facility] Endocrinology [place] [address] [phone] Harpreet Campbell, BHAVYA [address] [phone] Social History Tobacco Use Types Packs/Day Years [...] Progress Notes * Harpreet Campbell NP - 04/21/2014 3:02 PM EDTQuick Note: 9 y female with early puberty and mild thyromegaly with minimally positive thyroglobulin antibodies. Not on thyroid hormone replacement. TSH and FT4 normal. No need for thyroid hormone replacement. Will repeat thyroid function tests in 6 months. documented in this encounter Plan of Treatment Not on file documented as of this encounter Procedures Procedure Name Priority Date/Time Associated Diagnosis Comments TSH Routine 04/20/2014 12:34 PM EDT Euthyroid Jurgen's THYROXINE FREE Routine 04/20/2014 12:34 PM EDT Euthyroid Jurgen's documented in this encounter Results * THYROXINE FREE (04/20/2014 12:34 PM EDT) Thyroxine Free 1.00 0.90 - 1.70 ng/dL [facility] Blood specimen (specimen) 04/20/2014 12:34 PM EDT 04/20/2014 12:39 PM EDT Harpreet Campbell NP CHEMISTRY ORDERABLES [facility] [address] [place] [address] [facility] [address] [place] [address] Dance Instructor: Deedee Leiva MD, PhD * TSH (04/20/2014 12:34 PM EDT) TSH 2.09 0.60 - 5.50 uIU/mL [facility] Comment: Reference ranges for infants and prepubertal children are suggested ranges. Blood specimen (specimen) 04/20/2014 12:34 PM EDT 04/20/2014 12:39 PM EDT Harpreet Nancydebo LABORER STORES CHEMISTRY ORDERABLES [facility] [address] [place] [address] [facility] [address] [place] [address] Dance Instructor: Deedee Leiva MD, PhD documented in this encounter Visit Diagnoses Diagnosis Euthyroid Juregn's Chronic lymphocytic thyroiditis documented in this encounter Care Teams Story Editor Relationship Specialty Start Date End Date Les Haq MD [address] [place] [address] PCP - Pediatric Endocrinology (change to care team) 07/13/12 10/18/16 Les Haq MD [address] [place] [address] PCP - Hospital (change to care team) 02/13/12 09/10/16 Juliet Lubin MD [address] [place] [address] PCP - General Pediatrics 03/01/13 07/24/15 Ally Bianchi MD [address] [place] [address] PCP - General Pediatrics 07/25/15 03/05/16 Juliet Lubin MD [address] [place] [address] PCP - General Pediatrics 03/06/16 01/07/19 Ally Bianchi MD [address] [place] [address] PCP - General Pediatrics 01/08/19 11/04/22 Gladys Goff MD [address] [place] [address], [place] [phone] PCP - General Internal Medicine 11/05/22 Harpreet Campbell NP [address] [place] [address] [address] [place] [address] Nurse Practitioner Pediatric Endocrinology 02/14/12 documented as of this encounter
--- OUTSIDE RECORDS SUMMARY | 2024-08-28 17:09 | XMS_ITS | Encounter Summary ---
Author Organization [facility] Address [address] [place] [address] Care Team Providers Care Ball Points Inspector Name Role Phone Provider, Unknown Primary Care Provider Unavaila ble Les Haq MD Unavailable [phone] Les Haq MD Unavailable [phone] Harpreet Campbell NP Unavailable Juliet Lubin MD Primary Care Provider [phone] Ally Bianchi MD Primary Care Provider [phone] Juliet Lubin MD Primary Care Provider [phone] Ally Bianchi MD Primary Care Provider [phone] Gladys Goff MD Primary Care Provider [phone] Encounter Details Date Type Department Care Team (Late st Contact Info) Description 02/13/2012 Hospital Visit [facility] OUTPATIENT Les Haq MD [address] [place] [address] Social History Tobacco Use Types Packs/Day Years [...] on filedocumented in this encounter Care Teams Ball Points Inspector Relationship Specialty Start Date End Date Provider, Unknown PCP - General 05/08/10 02/28/13 Les Haq MD [address] [place] [address] PCP - Pediatric Endocrinology (change to care team) 07/13/12 10/18/16 Les Haq MD [address] [place] [address] PCP - Hospital (change to care team) 02/13/12 09/10/16 Jluiet Lubin MD [address] [place] [address] PCP - General Pediatrics 03/01/13 07/24/15 Ally Bianchi MD [address] [place] [address] PCP - General Pediatrics 07/25/15 03/05/16 Juliet Lubin MD [address] [place] [address] PCP - General Pediatrics 03/06/16 01/07/19 Ally Bianchi MD [address] [place] [address] PCP - General Pediatrics 01/08/19 11/04/22 Gladys Goff MD [address] [place] [phone] PCP - General Internal Medicine 11/05/22 Harpreet Campbell NP [address] [place] [phone] Nurse Practitioner Pediatric Endocrinology 02/14/12 documented as of this encounter
--- OUTSIDE RECORDS SUMMARY | 2024-08-28 17:09 | XMS_ITS | Encounter Summary ---
Author Organization [facility] Address [address] [place] [address] Care Team Providers Care Web Project Manager Name Role Phone Les Haq MD Unavailable [phone] Les Haq MD Unavailable [phone] Harpreet Campbell TIMEKEEPER SUPERVISOR Unavailable Ally Bianchi MD Primary Care Provider [phone] Juliet Lubin MD Primary Care Provider [phone] Ally Bianchi MD Primary Care Provider [phone] Gladys Goff MD Primary Care Provider [phone] Encounter Details Date Type Department Care Team (Late st Contact Info) Description 11/06/2015 Orders Only [facility] Endocrinology [place] [address] [phone] Harpreet Campbell, TIMEKEEPER SUPERVISOR 15[address] [facility] 2[address] Floor [place], [place] [phone] Social History Tobacco Use Types Packs/Day Years [...] Telephone Encounter - Harpreet Campbell NP - 12/08/2015 11:10 AM ESTQuick Note: Addendum: lab unable to add thyroid autoantibodies. Will repeat thyroid function tests tin 1 year along with antibodies at that time. Will send normal lab letter. 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 No thyromegaly on exam. TSH and FT4 normal. No need for thyroid hormone. Will see if thyroid autoantibodies can be added on tosee if they are now negative in which case we can likely stop checking thyroid function tests. documented in this encounter Plan of Treatment Not on file documented as of this encounter Procedures Procedure Name Priority Date/Time Associated Diagnosis Comments TSH Routine 11/22/2015 10:51 AM EST Euthyroid Jurgen's thyroiditis THYROXINE FREE Routine 11/22/2015 10:51 AM EST Euthyroid Jurgen's thyroiditis documented in this encounter Results * THYROXINE FREE (11/22/2015 10:51 AM EST) Thyroxine Free 1.25 0.90 - 1.70 ng/dL [facility] Comment: Serum left in contact with red blood cells. ??This may result in decreased glucose values and elevated potassium, LDH, and AST values. Blood specimen (specimen) 11/22/2015 10:51 AM EST 11/22/2015 3:15 PM EST Harpreet Campbell TIMEKEEPER SUPERVISOR CHEMISTRY ORDERABLES Performing Organization Address [facility] Co de Phone Number [facility] [address] [place] [address] Cullet Crusher And Washer: Deedee Leiva MD, PhD * TSH (11/22/2015 10:51 AM EST) TSH 1.78 0.27 - 4.20 uIU/mL [facility] Blood specimen (specimen) 11/22/2015 10:51 AM EST 11/22/2015 3:15 PM EST Harpreet Campbell TIMEKEEPER SUPERVISOR CHEMISTRY ORDERABLES Performing Organization Address [facility] Co de Phone Number [address] [place] [address] Cullet Crusher And Washer: Deedee Leiva MD, PhD documented in this encounter Visit Diagnoses Diagnosis Euthyroid Jurgen's thyroiditis Chronic lymphocytic thyroiditis documented in this encounter Care Teams Web Project Manager Relationship Specialty Start Date End Date Les Haq MD [address] [address] PCP - Pediatric Endocrinology (change to care team) 07/13/12 10/18/16 Les Haq MD [address] [address] PCP - Hospital (change to care team) 02/13/12 09/10/16 Ally Bianchi MD [address] [place] [address] PCP - General Pediatrics 07/25/15 03/05/16 Juliet Lubin MD [address] [place] [address] PCP - General Pediatrics 03/06/16 01/07/19 Ally Bianchi MD [address] [place] [address] PCP - General Pediatrics 01/08/19 11/04/22 Gladys Goff MD [address] [place] [phone] PCP - General Internal Medicine 11/05/22 Harpreet Campbell, BHAVYA [address] [place] [phone] Nurse Practitioner Pediatric Endocrinology 02/14/12 documented as of this encounter
== END 2024-08-28 17:49 | disposition home or self-care (01) ==
PROVIDERS: Emergency Provider Emergency Medicine Emergency Medical Services
DX: U07.1 COVID-19 (principal); F41.9 Anxiety disorder, unspecified
CPT/HCPCS: 76604; 76705; 93308; 99283; 99284

== ENCOUNTER 2024-12-24 07:55 | Outpatient (CLI) | payer OTHER, SELFPAY | END 2024-12-24 07:56 | disposition home or self-care (01) | LOC: RAD 07:57 | PROVIDERS: Visit Provider Internal Medicine Cardiovascular Disease | DX: R01.1 Cardiac murmur, unspecified (principal) | CPT/HCPCS: 93306 ==

== ENCOUNTER 2025-02-14 13:09 | Emergency (ER) | payer OTHER, SELFPAY ==
[2025-02-14] VITALS (25 sets, daily range): BP systolic 113–183; BP diastolic 75–128; PULSE 56–93; RESP 0–50; TEMP 37.2; O2SAT 96–100; BMI 26.6
--- NOTE | 2025-02-14 14:08 | CRLHL7_ITS ---
For Patients: As a result of the Century Cures Act, medical imaging exams and procedure reports are released immediately into your electronic medical record. You may view this report before your referring provider. If you have questions, please contact your health care provider. INDICATION: Chest pain. TECHNIQUE: Chest radiographs, 2 views. COMPARISON: Chest radiographs 09/10/2024. FINDINGS: Cardiovascular/Mediastinum: Normal heart size. Unremarkable. Lungs: No focal consolidation. Airways: Trachea remains midline. Pleura: No pleural effusions or pneumothorax. Bones: No acute osseous abnormalities. Upper abdomen: Unremarkable. IMPRESSION: No acute cardiopulmonary process. Dictated by Abelardo Stubbs MD @ 02/14/2025 2:52:43 PM (Electronically Signed)
--- OUTSIDE RECORDS SUMMARY | 2025-02-14 14:37 | XMS_ITS | Encounter Summary ---
Author Organization [facility] Address [address] [place] [address] Care Team Providers Care Glove Cuffer Name Role Phone Les Haq MD Unavailable [phone] Les Haq MD Unavailable [phone] Harpreet Campbell NP Unavailable Ally Bianchi MD Primary Care Provider [phone] Juliet Lubin MD Primary Care Provider Ally Bianchi MD Primary Care Provider [phone] Gladys Goff MD Primary Care Provider [phone] Encounter Details Date Type Department Care Team (Late st Contact Info) Description 11/06/2015 Orders Only [facility] Endocrinology [address] [address] Harpreet Campbell NP [address] [address] Social History Tobacco Use Types Packs/Day Years Used Date Smoking Tobacco: Never Alcohol Use Standard Drinks/Week Comments Not Asked 0 (1 standard drink = 0.6 oz pur e alcohol) Substance Use Types Use/Week Comments Not Asked Comments No Sex and Gender Information Value Date Recorded Sex Assigned at Not on file Legal Sex Female 6:39 AM EST Gender Identity Not on file Sexual Orientation Not on file documented as of this encounter Functional Status * Are you deaf or do you have serious difficulty hearing? Answer Date of Assessment Author Status No 07/25/2015 5:38 PM Tatyana Srivastava RN Active * Are you blind or do you have serious difficulty seeing, even when wearing glasses? Answer Date of Assessment Author Status No 07/25/2015 5:38 PM Tatyana Srivastava RN Active * Do you have serious difficulty walking or climbing stairs? (5 years old or older) Answer Date of Assessment Author Status No 07/25/2015 5:38 PM Tatyana Srivastava RN Active * Do you have difficulty dressing or bathing? (5 years old or older) Answer Date of Assessment Author Status No 07/25/2015 5:38 PM Tatyana Srivastava RN Active documented as of this encounter Mental Status * Because of a physical, mental, or emotional condition, do you have serious difficulty concentrating, remembering, or making decisions? (5 years old or older) Answer Entry Date Author Status No 07/25/2015 5:38 PM Tatyana Srivsatava RN Active documented in this encounter Miscellaneous Notes * Telephone Encounter [...] Thyroxine Free 1.25 0.90 - 1.70 ng/dL [facility] Comment: Serum left in contact with red blood cells. This may result in decreased glucose values and elevated potassium, LDH, and AST values. Blood specimen (specimen) 11/22/2015 10:51 AM EST 11/22/2015 3:15 PM EST [facility] DRAWING INSTRUCTOR CHEMISTRY ORDERABLES Final Resul t Performing Organization Address [facility] Co de Phone Number [address] [place] [address] * TSH (11/22/2015 10:51 AM EST) TSH 1.78 0.27 - 4.20 uIU/mL [facility] Blood specimen (specimen) 11/22/2015 10:51 AM EST 11/22/2015 3:15 PM EST [facility] DRAWING INSTRUCTOR CHEMISTRY ORDERABLES Final Resul t Performing Organization Address [facility] Co de Phone Number [address] [place] [address] documented in this encounter Visit Diagnoses Diagnosis Euthyroid Jurgen's thyroiditis Chronic lymphocytic thyroiditis documented in this encounter Care Teams Glove Cuffer Relationship Specialty Start Date End Date Les Haq MD [address] [place] [address] PCP - Pediatric Endocrinology (change to care team) 07/13/12 10/18/16 Les Haq MD [address] [place] [address] PCP - Hospital (change to care team) 02/13/12 09/10/16 Ally Bianchi MD [address] [place] [address] PCP - General Pediatrics 07/25/15 03/05/16 Juliet Lubin MD [address] [place] [address] PCP - General Pediatrics 03/06/16 01/07/19 Ally Bianchi MD [address] [place] [address] PCP - General Pediatrics 01/08/19 11/04/22 Gladys Goff MD [address] [place] [phone] PCP - General Internal Medicine 11/05/22 Harpreet Campbell NP [address] [place] [phone] Nurse Practitioner Pediatric Endocrinology 02/14/12 documented as of this encounter
--- OUTSIDE RECORDS SUMMARY | 2025-02-14 14:37 | XMS_ITS | Encounter Summary ---
Author Organization [facility] Address [address] [place] [address] Care Team Providers Care Payment Rep Name Role Phone Harpreet Campbell PASTE MAKER Unavailable Juliet Lubin MD Primary Care Provider Ally Bianchi MD Primary Care Provider + [phone] Gladys Goff MD Primary Care Provider [phone] Encounter Details Date Type Department Care Team (Late st Contact Info) Description 12/09/2016 Orders Only [facility] Endocrinology [address] [phone] Harpreet Campbell NP [address] [address] Social History Tobacco Use Types [...] 5:38 PM Tatyana Srivastava RN Active documented in this encounter Miscellaneous Notes * Telephone Encounter - Harpreet Campbell NP - 12/25/2016 11:03 AM [place] Note: 11y female with h/o euthyroid Jurgen's [...] to the family. Will send message to medical secretary [place] to schedule follow-up with me in March [...] EST) Thyroglobulin Ab Screen 0.1 <0.6 U [facility] Comment: NEGATIVE: <0.6 U WEAK POSITIVE: 0.6 - 1.0 U MODERATE POSITIVE TO STRONG POSITIVE: >1.0 U Thyroid Peroxidase Ab <62.5 <=100 U [facility] 12/12/2016 7:37 PM EST 12/13/2016 12:31 AM EST us Harpreet Eimicke PASTE MAKER IMMUNOLOGY ORDERABLES Final Resu lt Performing Organization Address [facility] Co de Phone Number [place] [address] [place] [address] * THYROXINE FREE (12/12/2016 7:37 PM EST) Thyroxine Free 1.12 0.90 - 1.70 ng/dL [facility] Blood specimen (specimen) 12/12/2016 7:37 PM EST 12/13/2016 12:31 AM EST us Harpreet Eimicke PASTE MAKER CHEMISTRY ORDERABLES Final Resul t Performing Organization Address [facility] Co de Phone Number [place] [address] [place] [address] * TSH (12/12/2016 7:37 PM EST) TSH 1.54 0.27 - 4.20 uIU/mL [facility] Blood specimen (specimen) 12/12/2016 7:37 PM EST 12/13/2016 12:31 AM EST us Harpreet Eimicke PASTE MAKER CHEMISTRY ORDERABLES Final Resul t Performing Organization Address [facility] Co de Phone Number [facility] [address] [place] [address] documented in this encounter Visit Diagnoses Diagnosis Euthyroid Jurgen's thyroiditis Chronic lymphocytic thyroiditis documented in this encounter Care Teams Payment Rep Relationship Specialty Start Date End Date Juliet Lubin MD [address] [place] [address] PCP - General Pediatrics 03/06/16 01/07/19 Ally Bianchi MD [address] [place] [address] PCP - General Pediatrics 01/08/19 11/04/22 Gladys Goff MD [address] [place] [phone] PCP - General Internal Medicine 11/05/22 Harpreet Campbell NP [address] [place] [phone] Nurse Practitioner Pediatric Endocrinology 02/14/12 documented as of this encounter
--- OUTSIDE RECORDS SUMMARY | 2025-02-14 14:37 | XMS_ITS | Clinical Summary ---
Author Organization [facility] Address [address] [place] [address] Care Team Providers Care Bull Ladle Tender Name Role Phone Unavailable Primary Care Provider Unavailabl e Source Comments Patient records contain information from all sites at [facility]. For routine questions regarding patient records, call [phone] during business hours, M-F 8:00 AM - 5:00 PM Central Time. Record requests for emergency care only can be directed to [phone] at any time.[facility] Allergies No known active allergies Medications oxyCODONE (ROXICODONE) 5 mg immediate release tabletIndication s:Acute Pain Take 1 tablet (5 mg total) by mouth every 4 (four) hours as needed for pain Indication: Acute Pain. 6 tablet 08/26/2023 Active Social History Tobacco Use Types Packs/Day Years Used Date Smoking Tobacco: Never Assessed Dental Answer Date Recorded Dental: Regular Dentist Unknown 08/26/20 23 Comments Unknown Sex and Gender Information Value Date Recorded Sex Assigned at Not on file Legal Sex Female 8:17 AM CDT Gender Identity Not on file Sexual Orientation Not on file Last Filed Vital Signs Vital Sign Reading Time Taken Comments Blood Pressure 117/79 08/26/2023 4:30 PM CDT Pulse 62 08/26/2023 4:45 PM CDT Temperature 36.2 C (97.2 F) 08/26/2023 3:15 PM CDT Respiratory Rate 16 08/26/2023 4:45 PM CDT Oxygen Saturation 99% 08/26/2023 4:45 PM CDT Inhaled Oxygen Concentration - - Weight 64 kg (141 lb 1.5 oz) 08/26/2023 12:41 PM CDT Height 160 cm (5' 3) 08/26/2023 12:41 PM CDT Body Mass Index 24.99 08/26/2023 12:41 PM CDT Plan of Treatment Health Maintenance Due Date Last Done Comments Cervical/Vaginal Cancer Screening 2003 Chlamydia and Gonorrhea Screening 2003 HIV Screening 2003 Hearing Screening during Well Child Visit 2003 Hepatitis B Screening 2003 Hepatitis C Screening 2003 TB Screening during Well Child Visit 2003 1 week Well Child Check-Up 2003 Well Child Check-Up (WCC) 2003 1 month Well Child Check-Up 2003 2 month Well Child Check-Up 2003 4 month Well Child Check-Up 2003 9 month Well Child Check-Up 2003 15 month Well Child Check-Up 05/11/2004 18 month Well Child Check-Up 08/11/2004 2 year Well Child Check-Up 02/08/2005 30 month Well Child Check-Up 08/11/2005 3 year Well Child Check-Up 02/08/2006 Well Child Check-Up Completed in Past Year 02/08/2006 5 year Well Child Check-Up 02/09/2008 6 year Well Child Check-Up 02/08/2009 7 year Well Child Check-Up 02/08/2010 8 year Well Child Check-Up 02/08/2011 10 year Well Child Check-Up 02/08/2013 DTaP,Tdap,and Td Vaccines (5 - Tdap) 2014 03/18/2007, 2003, 2003, Additional history exists 12 year Well Child Check-Up 02/08/2015 11 year Well Child Check-Up 02/09/2016 12 year Well Child Check-Up 02/08/2017 13 year Well Child Check-Up 02/08/2018 HPV Vaccines (1 - 3-dose series) 2018 17 year Well Child Check-Up 02/09/2020 18 year Well Child Check-Up 02/08/2021 19 year Well Child Check-Up 02/08/2022 20 year Well Child Check-Up 02/08/2023 19 year Well Child Check-Up 02/09/2024 COVID-19 Vaccine ( season) 2024 08/29/2022 Influenza Vaccine (#1) 2024 2, 08/30/2009, 09/16/2007 Depression Screening (Annual PHQ-2) 12/01/2024 Hepatitis B Vaccines Completed 03/20/2004, 2003, 2003 Pneumococcal vaccine (0-49 years) Aged Out 09/12/2004, 2003, 2003, Additional history exists No longer eligible based on patient's age to complete this topic IPV Vaccines Completed 03/18/2007, 09/01, 2003, Additional history exists Meningococcal Vaccine Aged Out No abhishek jose eligible based on patient's age to complete this topic Insurance
--- OUTSIDE RECORDS SUMMARY | 2025-02-14 14:38 | XMS_ITS | Encounter Summary ---
Author Organization [facility] Address [address] [place] [address] Care Team Providers Care Body Die Maker Name Role Phone Les Haq MD Unavailable [phone] Les Haq MD Unavailable [phone] Harpreet Campbell NP Unavailable Juliet Lubin MD Primary Care Provider [phone] Ally Bianchi MD Primary Care Provider [phone] Juliet Lubin MD Primary Care Provider [phone] Ally Bianchi MD Primary Care Provider [phone] Gladys Goff MD Primary Care Provider [phone] Encounter Details Date Type Department Care Team (Late st Contact Info) Description 02/24/2014 Orders Only [facility] Endocrinology [place] [address] [address] Harpreet Campbell NP [address] [address] Social History Tobacco Use Types Packs/Day Years Used Date Smoking Tobacco: Never Alcohol Use Standard Drinks/Week Comments Not Asked 0 (1 standard drink = 0.6 oz pur e alcohol) Substance Use Types Use/Week Comments Not Asked Comments Unknown Sex and Gender Information Value [...] Thyroxine Free 1.00 0.90 - 1.70 ng/dL [facility] Blood specimen (specimen) 04/20/2014 12:34 PM EDT 04/20/2014 12:39 PM EDT us Harpreet Campbell NP CHEMISTRY ORDERABLES Final Resul t [facility] [address] [place] [address] [facility] [address] [place], [place] [id number] * TSH (04/20/2014 12:34 PM EDT) TSH 2.09 0.60 - 5.50 uIU/mL [facility] Comment: Reference ranges for infants and prepubertal children are suggested ranges. Blood specimen (specimen) 04/20/2014 12:34 PM EDT 04/20/2014 12:39 PM EDT us Harpreet Campbell DRYWALL FINISHER FOREMAN CHEMISTRY ORDERABLES Final Resul t [facility] [address] [place] [address] [facility] [address] [place] [address] documented in this encounter Visit Diagnoses Diagnosis Euthyroid Jurgen's Chronic lymphocytic thyroiditis documented in this encounter Care Teams Body Die Maker Relationship Specialty Start Date End Date Les Haq MD [address] [place] [address] PCP - Pediatric Endocrinology (change to care team) 07/13/12 10/18/16 Les Haq MD [address] [place] [address] PCP - Hospital (change to care team) 02/13/12 09/10/16 Juliet Lubin MD [address] [place] [address] PCP - General Pediatrics 03/01/13 07/24/15 Ally Bianchi MD [address] [place] [address] PCP - General Pediatrics 07/25/15 03/05/16 Juliet Lubin MD [address] [place] [address] PCP - General Pediatrics 03/06/16 01/07/19 Ally Bianchi MD [address] [place] [address] PCP - General Pediatrics 01/08/19 11/04/22 Gladys Goff MD [address] [place] [phone] PCP - General Internal Medicine 11/05/22 Harpreet Campbell NP [address] [place] [address] [address] [place] [address] Nurse Practitioner Pediatric Endocrinology 02/14/12 documented as of this encounter
--- OUTSIDE RECORDS SUMMARY | 2025-02-14 14:38 | XMS_ITS ---
Author Organization Kelsi Collins [facility] Address [address] [facility] [address] [place] [address] Care Team Providers Care Test Cell Technician Name Role Phone KELSI COLLINS Unavailable [phone] REASON FOR VISIT Rash and acne Medications Medication SIG (Take, Route, Frequency, Duration) Notes Start Date End Date Status Ciclopirox 1 % as directed Externally 07/20/2024 Active Loprox 1 % USE TO WASH HAIR ONC E DAILY X 2 WEEKS, THEN USE ONCE EVERY OTHER DAY. for 30 Not-Taking Clindamycin Phosphate 1 % 1 application Externally once a day at bedtime 07/20/2024 Active Clobetasol Propionate 0.05 % 1 application Externally Twice a day As needed 07/20/2024 Active Encounters Encounter Location Date Provider Diagnosis Kelsi Collins Md [address] [facility] [address] [place] [address] 07/20/2024 KELSI COLLINS Multiple benign nevi D22.9 ; Lentigines L81.4 ; Seborrheic dermatitis, unspecified L21.9 and Acne vulgaris L70.0 Assessments Encounter Date Diagnosis (ICD Code) Assessment Notes Treatment Notes Treatment Clinical Notes Section Notes 07/20/2024 Multiple benign nevi (ICD-10 - D22.9) Explained benign. 07/20/2024 Lentigines (ICD-10 - L81.4) Few. Within normal limits but related to prior sun exposure. Reviewed sunscreen with an SPF of 30-50 and wearing a hat. 07/20/2024 Seborrheic dermatitis, unspecified (ICD-10 - L21.9) Chronic intermittent nature reviewed with patient. Discussed a shampoo to help keep under control predatory animal exterminator and a topical steroid to use as needed. Laprox shampoo one bottle/6 refills, wash hair QD for one week and then two times per week.Temovate solution 50 cc's/6 refills BID PRN to scaling scalp. 07/20/2024 Acne vulgaris (ICD-10 - L70.0) From her history, I suspect a hormonal component. I discussed spironolactone. Reviewed potential side effects of breast tenderness, irregular menses, and possible dizziness. I also reviewed it is possible that she could improve just with topical therapy and she would prefer topicals. Cleocin lotion one bottle/6 refills QHS to acne. Differin gel aswg-yax-wfuys er every other night to every night as tolerated.Ceta vicente gentle cleanser to wash face twice a day. Plan Of Treatment Medication Medication Name Sig Start Date Stop Date Notes Ciclopirox 1 % as directed Externally 07/20/2024 Clindamycin Phosphate 1 % 1 application Externally once a day at bedtime 07/20/2024 Clobetasol Propionate 0.05 % 1 applicati on Externally Twice a day 07/20/2024 Treatment Notes Assessment Notes Lentigines Reviewed sunscreen w ith an SPF of 30-50 and wearing a hat. Seborrheic dermatitis, unspecified Lapro x shampoo one bottle/6 refills, wash hair QD for one week and then two times per week.Temovate solution 50 cc's/6 refills BID PRN to scaling scalp. Acne vulgaris Cleocin lotion one b ottle/6 refills QHS to acne. Differin gel ajqf-htp-igskwlh every other night to every night as tolerated.Cetaphil gentle cleanser to wash face twice a day. Progress Notes * Elin CARRANZADOB:2005 ( 19 yo F)Acc No.[id number]:07/20/2024 Progress Notes Patient: Elin ROD Provider: Carolina Collins MD :2005 A ge:19 Y S ex:Female Date:07/20/2024 Address:[address] [place] [address], [id number] Subjective: * Chief Complaints: * R russell and acne * HPI: C onstitutional: Patient was last seen here about 2 years ago. Today, patient complains of dry and flaky scalp t hat she would like checked. She states she has used the Temovate solution in the past and that was helpful. She also complains of acne. She has Mirena IUD for two years. Before that, she was on oral contraceptives and did not have any acne when she was on oral contraceptives. No prior prescription treatment. She would like her moles checked to make sure nothing is dangerous. Medications: Lexapro, wellbutrin, and Mirena IUD. * Medical History: * Surgical History: * Hospitalization/Major Diagno stic Procedure: * Medications: N ot-TakingLoprox 1 % Shampoo USE TO WASH HAIR ONCE DAILY X 2 WEEKS, THEN USE ONCE EVERY OTHER DAY. Not-Taking Loprox 1 % Shampoo USE TO WASH HAIR ONCE DAILY X 2 WEEKS, THEN USE ONCE EVERY OTHER DAY. Objective: * Vitals: * Physical Examination: P atient is fair with type 1 skin. Few nevi that are present are brown, less than 6 mm, circular and even in color. She has a few small light brown macules, face, upper trunk, and arms. Scalp with diffuse scaling and minimal erythema. T-zone and jawline with erythematous papules and some comedones. Skin is not oily. Assessment: * Assessment: 1. M ultiple benign nevi - D22.9 (Primary) N otes :Explained benign. 2. L entigines - L81.4 N otes :Few. Within normal limits but related to prior sun exposure. 3. S eborrheic dermatitis, unspecified - L21.9 N otes :Chronic intermittent nature reviewed with patient. Discussed a shampoo to help keep under control senior care and a topical steroid to use as needed. 4. A cne vulgaris - L70.0 N otes :From her history, I suspect a hormonal component. I discussed spironolactone. Reviewed potential side effects of breast tenderness, irregular menses, and possible dizziness. I also reviewed it is possible that she could improve just with topical therapy and she would prefer topicals. Plan: * Treatment: 2. S eborrheic dermatitis, unspecified Start Ciclopirox Shampoo, 1 %, as directed, Externally, 1, Refills 6; S tart Clobetasol Propionate Solution, 0.05 %, 1 application, Externally, Twice a day As needed, 50 mL, Refills 6. Notes: Laprox shampoo one bottle/6 refills, wash hair QD for one week and then two times per week.Temovate solution 50 cc's/6 refills BID PRN to scaling scalp. 3. A cne vulgaris Start Clindamycin Phosphate Lotion, 1 %, 1 application, Externally, once a day at bedtime, 1, Refills 6. Notes: Cleocin lotion one bottle/6 refills QHS to acne. Differin gel bgyz-buo-jkypwka every other night to every night as tolerated.Cetaphil gentle cleanser to wash face twice a day. * Procedure Codes: * * Sign off status: Completed true * Provider: Carolina Collins MD Date: 0 07/20/2024 Generated for Saqib chaudhary/Rosalva/Herberthsmitting on: 0 02/14/2025 03:38 PM EDT History and Physical Notes * HPI (History of Present Illness) Category Sub-Category Detail Notes Category Not es Constitutional Patient was last seen here about 2 years ago. Today, patient complains of dry and flaky scalp that she would like checked. She states she has used the Temovate solution in the past and that was helpful. She also complains of acne. She has Mirena IUD for two years. Before that, she was on oral contraceptives and did not have any acne when she was on oral contraceptives. No prior prescription treatment. She would like her moles checked to make sure nothing is dangerous. Medications: Lexapro, wellbutrin, and Mirena IUD. Physical Examination Category Sub-Category Detail Notes Section Note s Patient is fair with type 1 skin. Few nevi that are present are brown, less than 6 mm, circular and even in color. She has a few small light brown macules, face, upper trunk, and arms. Scalp with diffuse scaling and minimal erythema. T-zone and jawline with erythematous papules and some comedones. Skin is not oily.
--- OUTSIDE RECORDS SUMMARY | 2025-02-14 14:38 | XMS_ITS | Encounter Summary ---
Author Organization [facility] Address [address] [place] [address] Care Team Providers Care Red Mud Thickener Operator Name Role Phone Provider, Unknown Primary Care Provider Unavaila ble Les Haq MD Unavailable [phone] Les Haq MD Unavailable [phone] Harpreet Campbell NP Unavailable Juliet Lubin MD Primary Care Provider [phone] Ally Bianchi MD Primary Care Provider [phone] Juliet Lubin MD Primary Care Provider [phone] Ally Bianchi MD Primary Care Provider [phone] Gladys Goff MD Primary Care Provider [phone] Encounter Details Date Type Department Care Team (Late st Contact Info) Description 02/13/2012 Hospital Visit [facility] Les Haq MD [address] [place] [address] Social History Tobacco Use Types Packs/Day Years [...] on filedocumented in this encounter Care Teams Red Mud Thickener Operator Relationship Specialty Start Date End Date Provider, Unknown PCP - General 05/08/10 02/28/13 Les Haq MD [address] [place] [address] PCP - Pediatric Endocrinology (change to care team) 07/13/12 10/18/16 Les Haq MD [address] [place] [address] PCP - Hospital (change to care team) 02/13/12 09/10/16 Juliet Lubin MD [address] [place] [address] PCP - General Pediatrics 03/01/13 07/24/15 Ally Bianchi MD [address] [place] [address] PCP - General Pediatrics 07/25/15 03/05/16 Juliet Lubin MD [address] [place] [address] PCP - General Pediatrics 03/06/16 01/07/19 Ally Bianchi MD [address] [place] [address] PCP - General Pediatrics 01/08/19 11/04/22 Gladys Goff MD [address] [place] [phone] PCP - General Internal Medicine 11/05/22 Harpreet Campbell NP [address] [place] [phone] Nurse Practitioner Pediatric Endocrinology 02/14/12 documented as of this encounter
--- OUTSIDE RECORDS SUMMARY | 2025-02-14 14:38 | XMS_ITS | Encounter Summary ---
Author Organization [facility] Address [address] [place] [address] Care Team Providers Care Engineering Surveyor Name Role Phone Les Haq MD Unavailable [phone] Les Haq MD Unavailable [phone] Harpreet Campbell NP Unavailable Juliet Lubin MD Primary Care Provider [phone] Ally Bianchi MD Primary Care Provider [phone] Juliet Lubin MD Primary Care Provider +[phone] [phone] Ally Bianchi MD Primary Care Provider [phone] Gladys Goff MD Primary Care Provider [phone] Encounter Details Date Type Department Care Team (Late st Contact Info) Description 10/24/2014 Orders Only [facility] Endocrinology [place] [address] [address] Harpreet Campbell NP [address] [phone] Social History Tobacco Use Types Packs/Day Years [...] Thyroxine Free 1.08 0.90 - 1.70 ng/dL [facility] Blood specimen (specimen) 11/03/2014 9:36 AM EST 11/03/2014 9:37 AM EST us Harpreet Campbell NP CHEMISTRY ORDERABLES Final Resul t [facility] [address] [place] [address] * TSH (11/03/2014 9:36 AM EST) TSH 2.94 0.60 - 5.50 uIU/mL [facility] Comment: Reference ranges for infants and prepubertal children are suggested ranges. 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 documented in this encounter Care Teams Engineering Surveyor Relationship Specialty Start Date End Date Les Haq MD [address] [place] [address] PCP - Pediatric Endocrinology (change to care team) 07/13/12 10/18/16 Les Haq MD [address] [place] [address] PCP - Hospital (change to care team) 02/13/12 09/10/16 Juliet Lubin MD [address] [place] [address] PCP - General Pediatrics 03/01/13 07/24/15 Ally Bianchi MD [address] [place] [address] PCP - General Pediatrics 07/25/15 03/05/16 Juliet Lubin MD [address] [place] [address] PCP - General Pediatrics 03/06/16 01/07/19 Ally Bianchi MD [address] [place] [address] PCP - General Pediatrics 01/08/19 11/04/22 Gladys Goff MD [address] [place] [phone] PCP - General Internal Medicine 11/05/22 Harpreet Campbell NP [address] [place] [phone] Nurse Practitioner Pediatric Endocrinology 02/14/12 documented as of this encounter
--- OUTSIDE RECORDS SUMMARY | 2025-02-14 14:38 | XMS_ITS | Encounter Summary ---
Author Organization [facility] Address [address] [place] [address] Care Team Providers Care Leasing Specialist Name Role Phone Les Haq MD Unavailable [phone] Les Haq MD Unavailable [phone] Harpreet Cambpell NP Unavailable Juliet Lubin MD Primary Care Provider [phone] Ally Bianchi MD Primary Care Provider [phone] Juliet Lubin MD Primary Care Provider +1-2 2 Ally Bianchi MD Primary Care Provider [phone] Gladys Goff MD Primary Care Provider [phone] Encounter Details Date Type Department Care Team (Late st Contact Info) Description 08/30/2013 Orders Only [facility] Endocrinology [place] [address] [address] Harpreet Campbell NP [address] [address] Social History Tobacco Use Types [...] EDT) TSH 3.23 0.60 - 5.50 uIU/mL [facility] Comment: Reference ranges for infants and prepubertal children are suggested ranges. Blood specimen (specimen) 08/26/2013 3:21 PM EDT 08/26/2013 8:49 PM EDT us Harpreet Campbell NP CHEMISTRY ORDERABLES Final Resul t [facility] [address] [place] [address] [facility] [address] [place], [place] [id number] * THYROXINE FREE (08/26/2013 3:21 PM EDT) Thyroxine Free 1.03 0.90 - 1.70 ng/dL [facility] Blood specimen (specimen) 08/26/2013 3:21 PM EDT 08/26/2013 8:49 PM EDT us Harpreet Campbell GANG RIDER CHEMISTRY ORDERABLES Final Resul t [facility] [address] [place] [address] [facility] [address] [place] [address] documented in this encounter Visit Diagnoses Diagnosis 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, not elsewhere classified documented in this encounter Care Teams Leasing Specialist Relationship Specialty Start Date End Date Les Haq MD [address] [place] [address] PCP - Pediatric Endocrinology (change to care team) 07/13/12 10/18/16 Les Haq MD [address] [place] [address] PCP - Hospital (change to care team) 02/13/12 09/10/16 Juliet Lubin MD [address] [place] [address] PCP - General Pediatrics 03/01/13 07/24/15 Ally Bianchi MD [address] [place] [address] PCP - General Pediatrics 07/25/15 03/05/16 Juliet Lubin MD [address] [place] [address] PCP - General Pediatrics 03/06/16 01/07/19 Ally Bianchi MD [address] [place] [address] PCP - General Pediatrics 01/08/19 11/04/22 Gladys Goff MD [address] [place] [phone] PCP - General Internal Medicine 11/05/22 Harpreet Campbell NP [address] [place] [phone] Nurse Practitioner Pediatric Endocrinology 02/14/12 documented as of this encounter
--- OUTSIDE RECORDS SUMMARY | 2025-02-14 14:38 | XMS_ITS | Patient Health Record ---
Author Organization Kelsi Collins Md Address [address] [facility] [address] [place] [address] Care Team Providers Care Collator Name Role Phone KELSI COLLINS Unavailable [phone] Reason For Referral No Information Medications Medication [...] Provider Diagnosis Kelsi Collins Md [address] [facility] [address] [place] [address] 07/20/2024 KELSI COLLINS Multiple benign nevi D22.9 ; Lentigines L81.4 ; Seborrheic dermatitis, unspecified L21.9 and Acne vulgaris L70.0 Assessments Encounter Date Diagnosis (ICD Code) Assessment Notes Treatment Notes Treatment Clinical Notes Section Notes 07/20/2024 Lentigines (ICD-10 - L81.4) Few. Within normal limits but related to prior sun exposure. Reviewed sunscreen with an SPF of 30-50 and wearing a hat. 07/20/2024 Multiple benign nevi (ICD-10 - D22.9) Explained benign. 07/20/2024 Seborrheic dermatitis, unspecified (ICD-10 - L21.9) Chronic intermittent nature reviewed with patient. Discussed a shampoo to help keep under control long term care pharmacist and a topical steroid to use as [...] bottle/6 refills QHS to acne. Differin gel fwkw-duv-hlaxa er every other night to every night as tolerated.Ceta vicente gentle cleanser to wash face twice a day. Plan Of Treatment No Information Insurance Providers Payer Name Payer Address Payer Phone Subscriber Number Group Number Insured Name Patient Relationship to Insured Coverage Start Date Coverage End Date [employer] [address] [address] [place] [address] [id number] Elin Carranza Self - patient is the insured
--- OUTSIDE RECORDS SUMMARY | 2025-02-14 14:38 | XMS_ITS ---
Author [facility] Address [address] [place] [phone] Care Team Providers Care Flight/Transport Nurse Name Role Phone Gladys Goff Primary Care Provider Unavailabl cedrick Mejia MD, Thomas Unavailable [phone] Kei Fitch MD, Ally Unavailable Unavailable REASON FOR VISIT 1.2 fl to jfm-rx refill Encounters Encounter Location Date Provider Diagnosis [facility] [address] [address] 12/02/2024 Thomas Mejia Plan Of Treatment No Information Progress Notes * Elin CARRANZA CDOB:2005 (19 yo F)Acc No.[id number]:12/02/2024 Patient: Elin ROD Zane :2005 A ge:19 Y S ex:Female Address:[address] [place] [address], [phone] * true * Date: Generated for Bibianai ng/Faxing/eTransmitting on: 0 02/14/2025 03:38 PM EDT
--- OUTSIDE RECORDS SUMMARY | 2025-02-14 14:38 | XMS_ITS ---
Author [facility] Address [address] [place] [address] Care Team Providers Care Medical Policy Specialist Name Role Phone Gladys Goff Primary Care Provider Unavailmary ann Mejia MD, Thomas Unavailable [phone] Kei Fitch MD, Ally Unavailable Unavailable REASON FOR VISIT Not needed - budesonide-form PA Encounters Encounter Location Date Provider Diagnosis [facility] [address] [address] 11/30/2024 Thomas Mejia Plan Of Treatment No Information Progress Notes * Elin CARRANZA CDOB:2005 (19 yo F)Acc No.[id number]:11/30/2024 Patient: Kwabena RUEDA Elin Zane :2005 A ge:19 Y S ex:Female Address:[address] [place] [address], [phone] * true * Date: Generated for Bibianai ng/Fachinog/eTransmitting on: 0 02/14/2025 03:38 PM EDT
--- OUTSIDE RECORDS SUMMARY | 2025-02-14 14:38 | XMS_ITS | Encounter Summary ---
Author Organization [facility] Address [address] [place] [address] Care Team Providers Care Kitchen Clerk Name Role Phone Provider, Unknown Primary Care Provider Unavaila ble Les Haq MD Unavailable [phone] Les Haq MD Unavailable [phone] Harpreet Campbell NP Unavailable Juliet Lubin MD Primary Care Provider [phone] Ally Bianchi MD Primary Care Provider [phone] Juliet Lubin MD Primary Care Provider +[phone] [phone] Ally Bianchi MD Primary Care Provider [phone] Gladys Goff MD Primary Care Provider [phone] Encounter Details Date Type Department Care Team [...] on filedocumented in this encounter Care Teams Kitchen Clerk Relationship Specialty Start Date End Date Provider, Unknown PCP - General 05/08/10 02/28/13 Les Haq MD [address] [place] [address] PCP - Pediatric Endocrinology (change to care team) 07/13/12 10/18/16 Les Haq MD [address] [place] [address] PCP - Hospital (change to care team) 02/13/12 09/10/16 Juliet Lubin MD [address] [place] [address] PCP - General Pediatrics 03/01/13 07/24/15 Ally Bianchi MD [address] [place] [address] PCP - General Pediatrics 07/25/15 03/05/16 Juliet Lubin MD [address] [place] [address] PCP - General Pediatrics 03/06/16 01/07/19 Ally Bianchi MD [address] [place] [address] PCP - General Pediatrics 01/08/19 11/04/22 Gladys Goff MD [address] [place] [phone] PCP - General Internal Medicine 11/05/22 Harpreet Campbell NP [address] [place] [phone] Nurse Practitioner Pediatric Endocrinology 02/14/12 documented as of this encounter
--- OUTSIDE RECORDS SUMMARY | 2025-02-14 14:39 | XMS_ITS | Patient Health Record ---
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 Name Role Phone Gladys Goff Primary Care Provider Unavailmary ann Mejia MD, Thomas Unavailable [phone] Kei Fithc MD, Ally Unavailable Unavailable Alexander Ortiz Unavailable [phone] Allergies Allergen (clinical drug ingredient) Drug/Non Drug [...] (%) 90 FEF 25-27% (% Change) 15 JANENE-MIDMARK (Not yet revie wed by provider) Interpretation: Performing Lab: Notes/Report: SpiroPostBronchodilator_FEF25_75 0 SpiroPreBronchodilator_FEF25_75 3.93 SpiroPrecentPredictionPost_FEF25_75 0 SpiroPrecentPredictionPost_FEV1 0 SpiroPrecentPredictionPost_FEV1_OVER_FVC 0 SpiroPrecentPredictionPost_FVC 0 SpiroPrecentPredictionPre_FEF25_75 94 SpiroPrecentPredictionPre_FEV1 97.9 SpiroPrecentPredictionPre_FEV1_OVER_FVC 101.1 Percent Predicted Pre FVC 95.8 Predicted FEF 25-75% 4.18 FEV1 (L) 3.29 FEV/FVC 89.98 FVC (L) 3.65 PEF 5.21 Post FEV1 (L) 0 Post FEV/FVC 0 Post FVC (L) 0 Post PEF 0 Predicted FEV1 (L) 3.36 Predicted FEV1/FVC 88.96 Predicted FVC (L) 3.81 Predicted PEF 6.58 Reason For Referral No Information Medications Medication SIG (Take, Route, Frequency, Duration) Notes Start Date End Date Status Mirtazapine 30 MG TAKE 1 TABLET BY MOUTH EVERY DAY Oral Once a day for 90 days Active Ventolin HFA 108 (90 Base) MCG/ACT inhale 2 puffs by in Inhalation every 4 hrs prn for 90 days PRN 12/17/2012 Active Escitalopram Oxalate 20 MG Oral for 90 Days Active busPIRone HCl 10 MG 1 tablet Orally Twice a day Active Multivitamin Gummies Adult - Orally Active Nasacort Allergy 24HR 55 MCG/ACT 1 spray in each nostril Nasally Once a day for 30 day(s) PRN Active Asmanex 60 Metered Doses 220 MCG/INH 1 puff Inhalation once a day for 30 days 05/09/2017 Not-Taking ZyrTEC 10 take 1 tablet 10 mg oral QD PRN PRN 05/14/2016 Active Asmanex (30 Metered Doses) 220 MCG/INH Take 1 puff daily Not- Taking IUD's Active Kym 3-0.02 MG 1 tablet Orally Once a day Not-Taking Prevacid 24HR 15 MG 1 capsule before a meal Orally Once a day for 30 day(s) Active Flonase Allergy Relief 50 MCG/ACT 1 spray in each nostril Nasally Once a day for 30 day(s) Not-Taking Calcium Gummies 250-100-500 MG-UNIT as directed Orally No t-Taking Vitamin D Not-Taking Lexapro 10 MG 3 tablets Orally Once a day Not-Taking Advair HFA 115-21 MCG/ACT 2 puffs Inhalation Twice a day for 30 days 09/16/2024 Not-Taking LaMICtal 100 MG 1 tablet Orally Once a day for 30 day(s) Not-Taking Montelukast Sodium 10 MG 1 tablet Orally Once a day for 30 days 10/18/2024 Active predniSONE 20 MG 3 tablets X1 day, then 2 tablets daily X3 days, then 1 tablet daily X3 days Orally Once a day for 7 days 10/18/2024 Not-Taking Budesonide-Formotero l Fumarate 160-4.5 MCG/ACT 2 puffs twice daily. Inhalation. Can also use 1 to 2 puffs every 4 hours as needed for relief of active asthma symptoms 11/30/2024 Active Budesonide-Formotero l Fumarate 160-4.5 MCG/ACT 2 puffs Inhalation Twice daily for 30 days 09/20/2024 Active Albuterol Sulfate (2.5 MG/3ML) 0.083% 3 mL as needed Inhalation every 6 hrs 11/30/2024 Active Wixela Inhub 250-50 MCG/ACT 1 puff Inhalation Twice a day for 90 days 09/22/2024 Not-Taking Symbicort 160-4.5 MCG/ACT 2 puffs Inhalation Twice daily for 30 days Please fill either brand name, generic or Breyna. Whichever insurance will cover. If none covered please let us know. Thank you 09/10/2024 Not-Taking Dulera 200-5 MCG/ACT 2 puffs Inhalation Twice a day for 30 days 09/15/2024 Active Arnuity Ellipta 100 MCG/ACT 1 puff Inhalation Once a day for 90 days 03/06/2021 Active Pulmicort Flexhaler 90 MCG/ACT 2 puffs Inhalation Twice a day for 30 days 08/05/2024 Not-Taking Immunizations Vaccine Route Administration Date Status Comme [...] Problem Status W/U Status Risk Notes Problem 44428766 Other chronic sinusitis (J32.8) Active confirmed Problem 36425028 Nasal congestion (R09.81) Active confirmed Problem 484319410 Allergic rhiniti s due to dust mite (J30.89) Active confirmed Problem 862340052 Allergic rhiniti s due to animal dander (J30.81) Active confirmed Problem 59275997545118115 Allergic rhini tis due to mold (J30.89) Active confirmed Problem 674392315003842 Allergic conjunctivitis of both eyes (H10.13) Active confirmed Problem 20539607 Chronic seasonal allergic rhinitis due to pollen (J30.1) Active confirmed Problem 93693379 Nasal turbinate hypertrophy (J34.3) Active confirmed Problem 787666132 Moderate persistent asthma, unspecified whether complicated (J45.40) Active confirmed Problem 67891971 Hyposmia (R43.8) Active confirmed Vital Signs Heart Rate 88 bpm 11/30/2024 Oximetry 98 % 11/30/2024 Height 63 in 11/30/2024 Weight 140 lbs 11/30/2024 BMI 24.8 kg/m2 11/30/2024 Encounters Encounter Location Date Provider Diagnosis [facility] [address] [address] 08/05/2024 Thomas Mejia Other chronic sinusi tis [...] and Mild persistent asthma, well controlled J45.30 [facility] [address] [address] [place] [address] 11/30/2024 Alexander Ortiz Moderate persistent asthma, unspecified whether complicated J45.40 ; Chest discomfort R07.89 ; Vocal cord dysfunction J38.3 and Heart murmur on physical examination R01.1 [facility] [address] [address] 08/05/2024 Thomas Mejia [facility] [address] [address] 08/28/2024 Thomas Mejia [facility] [address] [address] 09/07/2024 Thomas Mejia [facility] [address] [address] 09/14/2024 Thomas Mejia [facility] [address] [address] 09/15/2024 Thomas Mejia [facility] [address] [address] 09/20/2024 Thomas Mejia [facility] [address] [address] 09/24/2024 Thomas Mejia [facility] [address] [address] 10/12/2024 Thomas Mejia [facility] [address] [address] 11/30/2024 Thomas Mejia [facility] [address] [address] 12/02/2024 Thomas Mejia Assessments Encounter Date Diagnosis (ICD Code) Assessment Notes Treatment Notes Treatment Clinical Notes Section Notes 08/05/2024 Other chronic sinusitis (ICD-10 - [...] and titrate depending on response to therapy. 11/30/2024 Moderate persistent asthma, unspecified whether complicated (ICD-10 - J45.40) This woman has a history of mild asthma at least since her young adolescent years. At most past visits she has reported her symptoms to be absent to minimal. However, she has had some visits to this office with PFT evidence of reversible airway obstruction and significantly elevated FENO levels suggesting lower airway eosinophilic inflammation. She now reports that since she was diagnosed with COVID infection in August of this year she has been having frequent symptoms of difficulty breathing with trouble getting air in; a sensation of tightness, pressure, and discomfort over her mid-sternum; and an increase in the symptoms when she does exercise. She does not report significant coughing and she very rarely has wheezing. She has sometimes tried albuterol inhaler for relief of the symptoms and it sometimes provides relief for about 30 minutes, but at other times does not seem to be helpful. The symptoms have not been interfering with her sleep, nor have they prevented her from participating in practices and games with her [employer] team. Because of those symptoms she was switched from Arnuity to a fluticasone-salmet venkatesh dry powder inhaler, but she does not feel that she is doing any better or worse after that switch in medicine. She did go to an urgent care clinic while away at [facility] this fall and she was prescribed prednisone which seemed to decrease her symptoms while she was taking the prednisone. She had a chest x-ray during that urgent care visit and was advised that the chest x-ray was normal. On 1 other occasion she was prescribed prednisone over the phone by Dr. Mejia and again that was helpful while she was taking it. She reports that she has her breathing difficulty symptoms mostly with exercise but also at times when she is not involved in exercise. On physical examination today her chest has clear breath sounds with good air movement in all lung adhikari and unlabored respiration. Her PFTs are quite normal with FVC equal to 96%, FEV1 equal to 98%, and FEF 25-75 equal to 94% predicted. Her FENO level is mildly elevated at 47 ppb, but this is a significant improvement from her FENO level of 264 ppb at her last visit in August. I strongly suspect that many of her symptoms are being compounded and aggravated by anxiety about the symptoms. (She is very tearful and upset during the visit today and exhibits considerable anxiety about her symptoms; she is frequently doing self-monitoring of her pulse oximetry levels; she is currently under treatment with buspirone, mirtazapine, and Lexapro.) She does not agree that anxiety could be a factor. She particularly reports difficulty getting air in when she is exercising which is suggestive of vocal cord dysfunction (see discussion below). At this time I have reassured her regarding her normal chest exam, her normal pulse oximetry levels, her normal PFTs, and her significant improvement in her FENO levels. I have suggested a trial of Symbicort (budesonide-formot venkatesh) 2 puffs twice daily on a regular basis with additional use of 1 to 2 puffs of Symbicort every 4 hours if she is having active symptoms of breathing difficulty and/or chest tightness which do not resolve with a few minutes of rest. This medication will take the place of her current Advair and albuterol inhalers. I recommended that she give us a call within a couple of weeks to report how she is doing with her respiratory status. She will be returning to college in [place] in a few days. I recommended a follow-up visit with Dr. Mejia at the end of her spring, but also encouraged her to consider an earlier return visit if she continues to have bothersome respiratory symptoms. 11/30/2024 Chest discomfort (ICD-10 - R07.89) Because she reports symptoms of a sensation that there is something pressing on her mid chest causing her to have chest discomfort and difficulty breathing I did suggest that we could get a chest CT scan to make sure that we are not overlooking any mass or anatomical abnormality which might be contributing to those symptoms. With a reportedly normal chest x-ray over the fall it is unlikely that we would find anything significant. She and her father wish to have some further discussion and consideration before deciding if they wish to have a chest CT scan ordered. 08/05/2024 Nasal turbinate hypertrophy (ICD-10 - J34.3) Much improved status post turbinectomy last summer. 08/05/2024 Hyposmia (ICD-10 - R43.8) Much improved status post turbinectomy and sinus surgery last summer. 11/30/2024 Vocal cord dysfunction (ICD-10 - J38.3) It does seem that one of her prominent symptoms is a sensation that she has difficulty getting air in, especially with exercise. She also exhibits considerable symptoms indicative of anxiety. These factors do raise the possibility that some of her symptoms are related to vocal cord dysfunction. I explained that this is usually evaluated by an ENT specialist or a speech therapist and usually treated by speech therapy intervention. I recommended that if she continues to have her current symptoms despite the change in her asthma medicine that she seek referral for further evaluation and therapy for possible vocal cord dysfunction through her [facility] service. 08/05/2024 Nasal congestion (ICD-10 - R09.81) Much improved status post sinus surgery last summer with allergy immunotherapy for 5 years. Still occasionally uses allergy meds as needed but is much improved. 11/30/2024 Heart murmur on physical examination (ICD-10 - R01.1) Because of her complaints of chest discomfort and a sensation that she is having significant breathing difficulty in association with normal PFTs and significantly improved FENO, I did do a very close and thorough physical examination of her lungs and heart. I did notice a soft grade 2/6 systolic heart murmur at the left and right upper sternal borders without any radiation. Her heart had a regular rhythm with no rubs or gallops noted. I strongly suspect that this heart murmur is benign and may in fact be something that is only present intermittently, but I suggested that if her symptoms do not improve with the change in her asthma therapy that she discuss the possibility of further cardiac evaluation with her primary physician. Cardiac inflammation has been reported to be a post-COVID reaction. 08/05/2024 Allergic rhinitis due to dust mite [...] spen t on patient care today, including exuo-pb-gbbk and rkc-nonp-xt-face activities, was [45] minutes. Speech recognition software was used to create this documentation, which may create minor typographical errors. Effort was made to proofread. Please notify the author if there is confusion regarding interpretation of what is written, and/or if inconsistencies or errors persist. 11/30/2024 Other This visit has been documented with the assistance of voice recognition technology. Errors in coil strapper may occur. Proofreading has been done, but please notify the author if there are any questions regarding the documentation. More than 50% of this visit involved zrbx-hm-jafn time with the patient (or parent) obtaining history, performing physical exam, reviewing test results, and providing treatment and management advice. Total time including documentation: 60 minutes. Plan Of Treatment Pending Test Test Name Order Date JANENE-MIDMARK 04/15/2019 JANENE-MIDMARK 05/06/2019 JANENE-MIDMARK 12/14/2019 JANENE-MIDMARK 05/10/2021 JANENE-MIDMARK 11/30/2024 Insurance Providers Payer Name Payer Address Payer Phone Subscriber Number Group Number Insured Name Patient Relationship to Insured Coverage Start Date Coverage End Date [facility] O [address] [place] [phone] [id number] [employer]ino Carranza Child - Insured has Financial Responsibility Medical (General) History Medical History History ICD Code asthma, mild persistent allergic rhinoconjunctivitis due to animal dander, dust mites, seasonal pollens and mold complex regional pain syndrome Jurgen's thyroiditis Mild persistent asthma, well controlled J45.30 asthma anxiety Surgical History Surgery Date(Month/Year) Appendectomy Hand surgery 2022 appendectomy sinus surgery Breast Surgery Hospitalization History Reason Date(Month/Year) Broken hand 2022 ankle injury 05/2022 [facility] 08/2024 [facility] intense SOB - covid 08/2024
--- NOTE | 2025-02-14 14:52 | ED_ITS ---
HPI - Chest Pain General Date Seen: 02/14/25 <Harpreet P Murtaza - Last Filed: 02/15/25 08:43> Chief Complaint: Chest Pain <Harpreet Hauser DO - Last Filed: 02/15/25 08:43> Stated Complaint: Tightness in chest, passed out this morning <Harpreet Hauser - Last Filed: 02/15/25 08:43> Time Seen by Provider: 02/14/25 14:01 <Harpreet Hauser - Last Filed: 02/15/25 08:43> Source: patient <Harpreet Hauser - Last Filed: 02/15/25 08:43> Mode of arrival: ambulatory <Harpreet P Murtaza - Last Filed: 02/15/25 08:43> Limitations: no limitations <Harpreet Hauser - Last Filed: 02/15/25 08:43> History of Present Illness HPI narrative: Patient is a 19-year-old female presenting to the emergency department for chest pain. She states she has been having chest pain on and off for the past week. States it is a pressure sensation. Nothing particular seems to make it better or worse. States when occurs her left arm going numb and she becomes short of breath. Denies ever having symptoms like this before. No history of blood clots but does have a hormonal control. Has not noticed any hemoptysis, lower extremity edema, fevers, chills, abdominal pain. States today when she stood up she got lightheaded and passed out. Denies history of this happening before. She does admit to be slightly lightheaded at this time. Initially went to urgent care and was told to come to the emergency department. Does have a history of asthma. She states this is not feel like an asthma exacerbation. Has had previous echo for a small heart murmur. Did not show any significant abnormalities. <Harpreet P Murtaza, - Last Filed: 02/15/25 08:43> Related Data Home Medications: Home Medications ?Medication ?Instructions ?Recorded ?Confirmed cetirizine 10 mg tablet (Zyrtec) 10 mg PO DAILY PRN 06/07/22 02/14/25 escitalopram oxalate 20 mg tablet 30 mg PO DAILY 06/07/22 02/14/25 levonorgestrel (Mirena) 1 device intrauterine 06/07/22 12/16/24 mirtazapine 15 mg tablet 15 mg PO DAILY 08/28/24 02/14/25 budesonide-formoterol HFA 160 2 puff inhalation BID 12/16/24 02/14/25 mcg-4.5 mcg/actuation aerosol inhaler (Symbicort) clonazepam 0.5 mg tablet 0.5 mg PO QDAY PRN 12/16/24 02/14/25 Previous Rx's ?Medication ?Instructions ?Recorded ketorolac 10 mg tablet 10 mg PO Q8H 5 days #15 tabs 02/14/25 <Harpreet Hauser DO - Last Filed: 02/15/25 08:43> Allergies/Adverse Reactions: Allergies Allergy/AdvReac Type Severity Reaction Status Date / Time No Known Drug Allergies Allergy Verified 02/14/25 17:21 <Harpreet Hauser DO - Last Filed: 02/15/25 08:43> Review of Systems Status of ROS Reports: 10 or more systems reviewed and unremarkable except as noted in History and below <Harpreet Hauser DO - Last Filed: 02/15/25 08:43> [facility] Medical History: Medical History Asthma ?J45.909 - Unspecified asthma, uncomplicated (ICD-10) <Harpreet Hauser DO - Last Filed: 02/15/25 08:43> Surgical History: Surgical History Hx of breast reduction, elective ?Z98.890 - Other specified postprocedural states (ICD-10) S/P appendectomy ?Z90.49 - Acquired absence of other specified parts of digestive tract (ICD- 10) <Harpreet Hauser DO - Last Filed: 02/15/25 08:43> Social History: Social History Smoking Status: Never smoker Do you use any of these nicotine containing products: None How often do you have a drink containing alcohol: monthly or less AUDIT-C Alcohol total score: 1 Non-prescribed substance use: denies use <Harpreet Hauser DO - Last Filed: 02/15/25 08:43> Exam Narrative Exam Narrative: Const: Well-nourished, Well-developed, in mild distress, anxious Eyes: PERRL, no conjunctival injection, and symmetrical lids HENT: Atraumatic external nose and ears. Moist mucous membranes. Neck: Symmetric, trachea midline, No thyromegaly. CVS: RRR, No murmurs or gallops. Peripheral pulses 2+ and equal in all extremities RESP: Unlabored respiratory effort. Clear to auscultation bilaterally. GI: Nontender/Nondistended, No rebound or guarding. MSK:Extremities w/o deformity, Normal Active ROM Skin: Warm, Dry. No rashes or lesions. Neuro: Normal Muscle tone, No focal neurological deficits. Psych: Awake, Alert, & Oriented x3. <Harpreet Hauser DO - Last Filed: 02/15/25 08:43> Const Vital Signs, click to edit/add: Vital Signs - 24 hr 02/14/25 13:37 02/14/25 15:35 02/14/25 15:36 Temperature 98.9 F Pulse Rate 56 L 57 L Pulse Rate [Pulse Oximeter] 67 Respiratory Rate 20 12 0 L Blood Pressure 113/75 Blood Pressure [Right Upper Arm] 133/78 Pulse Oximetry 97 99 99 Oxygen Delivery Method Room Air 02/14/25 15:45 02/14/25 16:00 02/14/25 16:04 Temperature Pulse Rate 66 62 57 L Pulse Rate [Pulse Oximeter] Respiratory Rate 7 L Blood Pressure Blood Pressure [Right Upper Arm] Pulse Oximetry 99 99 98 Oxygen Delivery Method 02/14/25 16:15 02/14/25 16:30 02/14/25 16:45 Temperature Pulse Rate 68 63 58 L Pulse Rate [Pulse Oximeter] Respiratory Rate 38 H 14 15 Blood Pressure Blood Pressure [Right Upper Arm] Pulse Oximetry 99 100 99 Oxygen Delivery Method 02/14/25 17:00 02/14/25 17:02 02/14/25 17:04 Temperature Pulse Rate 89 77 81 Pulse Rate [Pulse Oximeter] Respiratory Rate 15 12 8 L Blood Pressure 183/128 H 144/85 H Blood Pressure [Right Upper Arm] Pulse Oximetry 98 99 99 Oxygen Delivery Method 02/14/25 17:15 02/14/25 17:34 02/14/25 17:35 Temperature Pulse Rate 88 93 Pulse Rate [Pulse Oximeter] Respiratory Rate 13 34 H 16 Blood Pressure Blood Pressure [Right Upper Arm] Pulse Oximetry 99 96 Oxygen Delivery Method 02/14/25 17:47 02/14/25 18:00 02/14/25 18:01 Temperature Pulse Rate 79 69 76 Pulse Rate [Pulse Oximeter] Respiratory Rate 13 20 50 H Blood Pressure 142/82 H Blood Pressure [Right Upper Arm] Pulse Oximetry 99 99 99 Oxygen Delivery Method 02/14/25 18:15 02/14/25 18:30 02/14/25 18:31 Temperature Pulse Rate 72 Pulse Rate [Pulse Oximeter] Respiratory Rate 18 17 10 L Blood Pressure 152/80 H Blood Pressure [Right Upper Arm] Pulse Oximetry 98 Oxygen Delivery Method 02/14/25 18:45 02/14/25 19:00 02/14/25 19:01 Temperature Pulse Rate 68 67 Pulse Rate [Pulse Oximeter] Respiratory Rate 14 14 12 Blood Pressure 127/76 Blood Pressure [Right Upper Arm] Pulse Oximetry 97 98 Oxygen Delivery Method 02/14/25 19:15 Temperature Pulse Rate 64 Pulse Rate [Pulse Oximeter] Respiratory Rate Blood Pressure Blood Pressure [Right Upper Arm] Pulse Oximetry 96 Oxygen Delivery Method <Harpreet Hauser, DO - Last Filed: 02/15/25 08:43> Vital Signs - 24 hr 02/14/25 13:37 02/14/25 15:35 02/14/25 15:36 Temperature 98.9 F Pulse Rate 56 L 57 L Pulse Rate [Pulse Oximeter] 67 Respiratory Rate 20 12 0 L Blood Pressure 113/75 Blood Pressure [Right Upper Arm] 133/78 Pulse Oximetry 97 99 99 Oxygen Delivery Method Room Air 02/14/25 15:45 02/14/25 16:00 02/14/25 16:04 Temperature Pulse Rate 66 62 57 L Pulse Rate [Pulse Oximeter] Respiratory Rate 7 L Blood Pressure Blood Pressure [Right Upper Arm] Pulse Oximetry 99 99 98 Oxygen Delivery Method 02/14/25 16:15 02/14/25 16:30 02/14/25 16:45 Temperature Pulse Rate 68 63 58 L Pulse Rate [Pulse Oximeter] Respiratory Rate 38 H 14 15 Blood Pressure Blood Pressure [Right Upper Arm] Pulse Oximetry 99 100 99 Oxygen Delivery Method 02/14/25 17:00 02/14/25 17:02 02/14/25 17:04 Temperature Pulse Rate 89 77 81 Pulse Rate [Pulse Oximeter] Respiratory Rate 15 12 8 L Blood Pressure 183/128 H 144/85 H Blood Pressure [Right Upper Arm] Pulse Oximetry 98 99 99 Oxygen Delivery Method 02/14/25 17:15 02/14/25 17:34 02/14/25 17:35 Temperature Pulse Rate 88 93 Pulse Rate [Pulse Oximeter] Respiratory Rate 13 34 H 16 Blood Pressure Blood Pressure [Right Upper Arm] Pulse Oximetry 99 96 Oxygen Delivery Method 02/14/25 17:47 02/14/25 18:00 02/14/25 18:01 Temperature Pulse Rate 79 69 76 Pulse Rate [Pulse Oximeter] Respiratory Rate 13 20 50 H Blood Pressure 142/82 H Blood Pressure [Right Upper Arm] Pulse Oximetry 99 99 99 Oxygen Delivery Method 02/14/25 18:15 02/14/25 18:30 02/14/25 18:31 Temperature Pulse Rate 72 Pulse Rate [Pulse Oximeter] Respiratory Rate 18 17 10 L Blood Pressure 152/80 H Blood Pressure [Right Upper Arm] Pulse Oximetry 98 Oxygen Delivery Method 02/14/25 18:45 02/14/25 19:00 02/14/25 19:01 Temperature Pulse Rate 68 67 Pulse Rate [Pulse Oximeter] Respiratory Rate 14 14 12 Blood Pressure 127/76 Blood Pressure [Right Upper Arm] Pulse Oximetry 97 98 Oxygen Delivery Method 02/14/25 19:15 Temperature Pulse Rate 64 Pulse Rate [Pulse Oximeter] Respiratory Rate Blood Pressure Blood Pressure [Right Upper Arm] Pulse Oximetry 96 Oxygen Delivery Method <Phi Dewitt MD - Last Filed: 02/14/25 19:20> Course Vital Signs Vital signs: Initial Vital Signs Temperature 98.9 F 02/14/25 13:37 Temperature Source Temporal Artery Scan 02/14/25 13:37 Pulse Rate 67 02/14/25 13:37 Respiratory Rate 20 02/14/25 13:37 Blood Pressure 133/78 02/14/25 13:37 Blood Pressure Mean 96 02/14/25 13:37 Blood Pressure Position Sitting 02/14/25 13:37 Pulse Oximetry 97 02/14/25 13:37 Oxygen Delivery Method Room Air 02/14/25 13:37 Vital Signs Temperature 98.9 F 02/14/25 13:37 Pulse Rate 67 02/14/25 13:37 Respiratory Rate 20 02/14/25 13:37 Blood Pressure 133/78 02/14/25 13:37 Pulse Oximetry 97 02/14/25 13:37 Oxygen Delivery Method Room Air 02/14/25 13:37 Temperature 98.9 F 02/14/25 13:37 Pulse Rate 64 02/14/25 19:15 Respiratory Rate 12 02/14/25 19:01 Blood Pressure 127/76 02/14/25 19:01 Pulse Oximetry 96 02/14/25 19:15 Oxygen Delivery Method Room Air 02/14/25 13:37 <Harpreet Hauser DO - Last Filed: 02/15/25 08:43> Initial Vital Signs Temperature 98.9 F 02/14/25 13:37 Temperature Source Temporal Artery Scan 02/14/25 13:37 Pulse Rate 67 02/14/25 13:37 Respiratory Rate 20 02/14/25 13:37 Blood Pressure 133/78 02/14/25 13:37 Blood Pressure Mean 96 02/14/25 13:37 Blood Pressure Position Sitting 02/14/25 13:37 Pulse Oximetry 97 02/14/25 13:37 Oxygen Delivery Method Room Air 02/14/25 13:37 Vital Signs Temperature 98.9 F 02/14/25 13:37 Pulse Rate 67 02/14/25 13:37 Respiratory Rate 20 02/14/25 13:37 Blood Pressure 133/78 02/14/25 13:37 Pulse Oximetry 97 02/14/25 13:37 Oxygen Delivery Method Room Air 02/14/25 13:37 Temperature 98.9 F 02/14/25 13:37 Pulse Rate 64 02/14/25 19:15 Respiratory Rate 12 02/14/25 19:01 Blood Pressure 127/76 02/14/25 19:01 Pulse Oximetry 96 02/14/25 19:15 Oxygen Delivery Method Room Air 02/14/25 13:37 <Phi Dewitt MD - Last Filed: 02/14/25 19:20> Medications Administered Medications: Discontinued Medications Generic Name Dose Route Start Last Admin Trade Name Wenceslao PRN Reason Stop Dose Admin Acetaminophen 1,000 mg 02/14/25 16:02 02/14/25 16:13 Acetaminophen 500 Mg Tablet PO 02/14/25 16:03 1,000 mg ONCE ONE Administration <Harpreet Hauser DO - Last Filed: 02/15/25 08:43> Discontinued Medications Generic Name Dose Route Start Last Admin Trade Name Wenceslao PRN Reason Stop Dose Admin Acetaminophen 1,000 mg 02/14/25 16:02 02/14/25 16:13 Acetaminophen 500 Mg Tablet PO 02/14/25 16:03 1,000 mg ONCE ONE Administration <Phi Dewitt MD - Last Filed: 02/14/25 19:20> MDM - Chest Pain MDM Narrative Medical decision making narrative: Patient is a 19-year-old female presenting to the emergency department for chest pain. The differential diagnosis of chest pain is broad and includes common etiologies such as musculoskeletal strain, GERD, pneumonia, etc. More serious etiologies considered include PE, coronary artery disease, pneumothorax, aortic dissection, aortic aneurysm. Will do an EKG and troponin for to look for signs of coronary artery disease or other cardiac issues. She cannot be perked out so a D-dimer will be ordered. She looks otherwise stable aortic aneurysm/aortic dissection seems unlikely. Will do chest x-ray look for signs of pneumonia or pneumothorax. Also order CBC, BMP, COVID/flu/RSV. Chest x-ray shows no acute abnormalities as reviewed by myself and the radiologist. EKG shows no concerning findings. Lab work is on concerning other than a elevated D-dimer. Due to this and will order a CTA of her chest. Viral swabs are negative. Concern along symptoms have been going on for I do not believe repeat troponin is necessary. <Harpreet Hauser DO - Last Filed: 02/15/25 08:43> Patient is a 19-year-old female presenting to the emergency department for chest pain. The differential diagnosis of chest pain is broad and includes common etiologies such as musculoskeletal strain, GERD, pneumonia, etc. More serious etiologies considered include PE, coronary artery disease, pneumothorax, aortic dissection, aortic aneurysm. Will do an EKG and troponin for to look for signs of coronary artery disease or other cardiac issues. She cannot be perked out so a D-dimer will be ordered. She looks otherwise stable aortic aneurysm/aortic dissection seems unlikely. Will do chest x-ray look for signs of pneumonia or pneumothorax. Also order CBC, BMP, COVID/flu/RSV. Chest x-ray shows no acute abnormalities as reviewed by myself and the radiologist. EKG shows no concerning findings. Lab work is on concerning other than a elevated D-dimer. Due to this and will order a CTA of her chest. Viral swabs are negative. Concern along symptoms have been going on for I do not believe repeat troponin is necessary. CT and labs returned with reassuring results. The patient states that her pain is somewhat reproducible when taking a deep breath. This is more suggestive of chest wall pain. She is okay to be discharged. I did provide a prescription for Toradol. <Phi Dewitt MD - Last Filed: 02/14/25 19:20> Lab Data Labs: Lab Results 02/14/25 Range/Units 14:55 WBC 6.05 (4.50-11.00) K/uL RBC 4.62 (4.00-5.20) m/uL Hgb 12.6 (12.0-16.0) gm/dL Hct 39.5 (33.0-51.0) % MCV 86 (80-100) fL MCH 27 (26-34) pg MCHC 32 (32-36) gm/dL RDW Coeff of Primitivo 12.4 (11.5-15.5) % Plt Count 240 (140-440) K/uL Neut % (Auto) 46.1 (42.0-72.0) % Lymph % (Auto) 43.5 (20-44) % [place] % (Auto) 6.9 (0.0-11.0) % Eos % (Auto) 2.5 (0.0-7.0) % Baso % (Auto) 0.3 (0.0-3.0) % Neut # (Auto) 2.79 (1.7-7.0) K/uL Lymph # (Auto) 2.63 (0.90-2.90) K/uL [place] # (Auto) 0.40 (0.00-0.90) K/UL Eos # (Auto) 0.15 (0.00-0.50) K/uL Baso # (Auto) 0.02 (0.00-0.30) K/uL Abs Immat Gran (auto) 0.04 (0.00-0.30) K/uL Imm/Tot Granulo (auto) 0.7 % D-Dimer Quant (PE/DVT) 1.01 H (0.00-0.50) ug/ml Sodium 139 (135-149) mmol/L Potassium 3.8 (3.6-5.1) mmol/L Chloride 102 (96-114) mmol/L Carbon Dioxide 26 (20-32) mmol/L Anion Gap 11 (7-15) mEq/L BUN 11 (5-24) mg/dL Creatinine 0.7 (0.5-1.5) mg/dL Estimated Creat Clear 105.16 Estimated GFR 126 ml/min Glucose 96 (60-115) mg/dL Calcium 9.6 (8.4-10.6) mg/dL SARS-CoV-2 (PCR) Negative SARS-CoV-2 (Negative) Influenza Type A (PCR) Negative PCR FLU A (Negative) Influenza Type B (PCR) Negative PCR FLU B (Negative) RSV (PCR) Negative PCR RSV (Negative) POC Troponin I 0.00 L (0.01-0.04) ng/ml <Harpreet Hauser, DO - Last Filed: 02/15/25 08:43> Lab Results 02/14/25 Range/Units 14:55 WBC 6.05 (4.50-11.00) K/uL RBC 4.62 (4.00-5.20) m/uL Hgb 12.6 (12.0-16.0) gm/dL Hct 39.5 (33.0-51.0) % MCV 86 (80-100) fL MCH 27 (26-34) pg MCHC 32 (32-36) gm/dL RDW Coeff of Primitivo 12.4 (11.5-15.5) % Plt Count 240 (140-440) K/uL Neut % (Auto) 46.1 (42.0-72.0) % Lymph % (Auto) 43.5 (20-44) % [place] % (Auto) 6.9 (0.0-11.0) % Eos % (Auto) 2.5 (0.0-7.0) % Baso % (Auto) 0.3 (0.0-3.0) % Neut # (Auto) 2.79 (1.7-7.0) K/uL Lymph # (Auto) 2.63 (0.90-2.90) K/uL [place] # (Auto) 0.40 (0.00-0.90) K/UL Eos # (Auto) 0.15 (0.00-0.50) K/uL Baso # (Auto) 0.02 (0.00-0.30) K/uL Abs Immat Gran (auto) 0.04 (0.00-0.30) K/uL Imm/Tot Granulo (auto) 0.7 % D-Dimer Quant (PE/DVT) 1.01 H (0.00-0.50) ug/ml Sodium 139 (135-149) mmol/L Potassium 3.8 (3.6-5.1) mmol/L Chloride 102 (96-114) mmol/L Carbon Dioxide 26 (20-32) mmol/L Anion Gap 11 (7-15) mEq/L BUN 11 (5-24) mg/dL Creatinine 0.7 (0.5-1.5) mg/dL Estimated Creat Clear 105.16 Estimated GFR 126 ml/min Glucose 96 (60-115) mg/dL Calcium 9.6 (8.4-10.6) mg/dL SARS-CoV-2 (PCR) Negative SARS-CoV-2 (Negative) Influenza Type A (PCR) Negative PCR FLU A (Negative) Influenza Type B (PCR) Negative PCR FLU B (Negative) RSV (PCR) Negative PCR RSV (Negative) POC Troponin I 0.00 L (0.01-0.04) ng/ml <Phi Dewitt MD - Last Filed: 02/14/25 19:20> Imaging Data Chest x-ray: Attestation: I have reviewed the pertinent imaging results. <Harpreet Hauser DO - Last Filed: 02/15/25 08:43> Radiologist's impression: No acute cardiopulmonary process. Dictated by Abelardo Stubbs MD @ 02/14/2025 2:52:43 PM <Harpreet Hauser DO - Last Filed: 02/15/25 08:43> CT scan - chest: Radiologist's impression: 1. Motion and suboptimal contrast bolus timing acquisition degrades evaluation of the distal segmental and subsegmental pulmonary arteries. No discrete large central or proximal segmental pulmonary embolus. 2. No mass or consolidation. <Phi Dewitt MD - Last Filed: 02/14/25 19:20> ECG Data Attestation: I personally reviewed and interpreted this ECG as follows: <Harpreet Hauser DO - Last Filed: 02/15/25 08:43> Prior ECG tracings: available for review <Harpreet Hauser DO - Last Filed: 02/15/25 08:43> Interpretation: Sinus bradycardia with rate 59 beats per minute, normal intervals, normal axis, no ST or T-wave abnormalities. Appears similar previous EKG on file. <Harpreet Hauser DO - Last Filed: 02/15/25 08:43> Discharge Plan Discharge Clinical Impression: Atypical chest pain <Harpreet Hauser DO - Last Filed: 02/15/25 08:43> Patient Disposition: Home, Self-Care <Harpreet Hauser - Last Filed: 02/15/25 08:43> Condition: Stable <Harpreet Hauser DO - Last Filed: 02/15/25 08:43> Instructions: Noncardiac Chest Pain (ED) <Harpreet Hauser DO - Last Filed: 02/15/25 08:43> Additional Instructions: Take Tylenol and ibuprofen for your pain. If symptoms persist follow-up with your primary care provider. Return for any new or worsening symptoms. <Harpreet Hauser DO - Last Filed: 02/15/25 08:43> Prescriptions: New ketorolac 10 mg tablet 10 mg PO Q8H 5 Days Qty: 15 0RF No Action clonazepam 0.5 mg tablet 0.5 mg PO QDAY PRN budesonide-formoterol [Symbicort] 160-4.5 mcg/actuation HFA aerosol inhaler 2 puff inhalation BID escitalopram oxalate 20 mg tablet 30 mg PO DAILY Mirena 20 mcg/24 hours (7 yrs) 52 mg intrauterine device 1 device intrauterine cetirizine [Zyrtec] 10 mg tablet 10 mg PO DAILY PRN mirtazapine 15 mg tablet 15 mg PO DAILY <Harpreet Hauser DO - Last Filed: 02/15/25 08:43> Follow Up/Referrals: Provider,Not a Local [Primary Care Provider] - <Harpreet Hauser DO - Last Filed: 02/15/25 08:43> Stand Alone Forms: [facility] <Harpreet P Murtaza, DO - Last Filed: 02/15/25 08:43>
[2025-02-14 15:33] LABS: Basophils Absolute Auto 0.02 K/uL (0.00-0.30); Basophils Percent Auto 0.3 % (0.0-3.0); Eosinophils Absolute Auto 0.15 K/uL (0.00-0.50); Eosinophils Percent Auto 2.5 % (0.0-7.0); Hematocrit 39.5 % (33.0-51.0); Hemoglobin* 12.6 gm/dL (12.0-16.0); Immature Granulocytes Abs Auto 0.04 K/uL (0.00-0.30); Immature Granulocytes Pct Auto 0.7 %; Lymphocytes Absolute Auto 2.63 K/uL (0.90-2.90); Lymphocytes Percent Auto 43.5 % (20-44); Mean Corpuscular HGB Conc 32 gm/dL (32-36); Mean Corpuscular Hemoglobin 27 pg (26-34); Mean Corpuscular Volume 86 fL (80-100); Monocytes Percent Auto 6.9 % (0.0-11.0); Neutrophils Absolute Auto 2.79 K/uL (1.7-7.0); Neutrophils Percent Auto 46.1 % (42.0-72.0); Platelet Count* 240 K/uL (140-440); RDW Coefficient of Variation % 12.4 % (11.5-15.5); Red Blood Count 4.62 m/uL (4.00-5.20); White Blood Count* 6.05 K/uL (4.50-11.00)
[2025-02-14 15:43] LABS: Slide Review Reflex No
[2025-02-14 15:56] LABS: Chloride* 102 mmol/L (96-114); Potassium* 3.8 mmol/L (3.6-5.1); Sodium* 139 mmol/L (135-149)
[2025-02-14 15:59] LABS: Anion Gap 11 mEq/L (7-15); Blood Urea Nitrogen* 11 mg/dL (5-24); Calcium* 9.6 mg/dL (8.4-10.6); Carbon Dioxide* 26 mmol/L (20-32); Creatinine* 0.7 mg/dL (0.5-1.5); Est. Creatinine Clearance* 105.16; Estimated Glomerular Filt Rate 126 ml/min; Glucose* 96 mg/dL (60-115)
[2025-02-14 16:03] LABS: PCR FLU A Negative PCR FLU A (Negative); PCR FLU B Negative PCR FLU B (Negative); PCR RSV Negative PCR RSV (Negative); SARS PCR* Negative SARS-CoV-2 (Negative)
[2025-02-14] MEDS: ACETAMINOPHEN 500 MG TABLET 1000 MG PO (16:13)
[2025-02-14 16:21] LABS: D Dimer Quantitative* 1.01 ug/ml (0.00-0.50)
--- NOTE | 2025-02-14 16:49 | CRLHL7_ITS ---
For Patients: As a result of the Century Cures Act, medical imaging exams and procedure reports are released immediately into your electronic medical record. You may view this report before your referring provider. If you have questions, please contact your health care provider. INDICATION: .SOB, CHEST PAIN TECHNIQUE: CT chest PE was acquired with 95 cc Isovue 370 IV contrast. COMPARISON: None FINDINGS: Pulmonary Arteries: Motion and suboptimal contrast bolus timing acquisition degrades evaluation of the distal segmental and subsegmental pulmonary arteries. No discrete large central or proximal segmental pulmonary embolus. No pulmonary hypertension or right ventricular strain. Heart and Mediastinum: The visualized portions of the thyroid are normal. No axillary or supraclavicular lymphadenopathy. No mediastinal, hilar or retrocrural lymphadenopathy. Normal heart size. Normal caliber aorta. Soft tissue triangular-shaped opacity in the anterior mediastinum should reflect residual thymic tissue. Lungs and Airways: No mass or consolidation. No endoluminal lesion. Pleura: The pleural spaces are normal. Abdomen: The visualized upper abdominal organs are unremarkable. Bones and soft tissues: The skeletal structures and soft tissues of the chest wall are unremarkable. IMPRESSION: 1. Motion and suboptimal contrast bolus timing acquisition degrades evaluation of the distal segmental and subsegmental pulmonary arteries. No discrete large central or proximal segmental pulmonary embolus. 2. No mass or consolidation. Please note that all CT scans at this facility use dose modulation, iterative reconstruction, and/or weight-based dosing when appropriate to reduce radiation dose to as low as reasonably achievable. Dictated by Jesse Irvin MD @ 02/14/2025 6:19:18 PM (Electronically Signed)
--- NOTE | 2025-02-15 09:30 | ED.NURSE ---
[facility] pharmacy called to inquire about rx for toradol for potential conflict with existing med. MD Hauser updated and okay'd rx for toradol.
== END 2025-02-14 19:30 | disposition home or self-care (01) ==
PROVIDERS: Emergency Provider Student in an Organized Health Care Education/Training Program
DX: R07.9 Chest pain, unspecified (principal)
CPT/HCPCS: 36415; 71046; 71275; 80048; 84484; 85025; 85379; 87631; 93005; 99284; 99285; A9270; Q9967